=== PATIENT | male | born 1965 | race Two or more races ===

== ENCOUNTER 2024-10-12 10:58 | Emergency (ER) | payer MEDICAID, OTHER ==
[~2024-10-12] VITALS: Ht 170.2 cm; Wt 75.4 kg
--- NOTE | 2024-10-12 11:55 | ED.PDOC ---
HPI Comments 59-year-old male presents with a chief complaint of HTN. Patient states that he was at [facility] for a wrist injury follow up but was referred to the ER due to having HTN. Patients BP in triage was 192/100 and rechecked at 174/98. Denies any radiation or other neuro symptoms. Patient takes 40mg of Lisinopril instead of 20 mg for his HTN. Patient does not check his blood pressure at home typically PMHx: HTN PSHx: Cervical Neck, Left Trigger Thumb SHx: Cigarette Use, Alcohol Use jess: HPI: Poor Historian. Patient was completely asymptomatic. REVIEW OF SYSTEMS: CONSTITUTIONAL: Denies acute: fever, diaphoresis, chills, generalized weakness. HEAD: Denies acute: headache, photophobia Eyes: Denies acute: Double vision, vision loss, eye pain, eye discharge. EARS: Denies acute: tinnitus, hearing loss, ear discharge, ear pain, THROAT: Denies acute: sore throat, swelling, difficulty swallowing , pain with swallowing, change in voice. NECK: Denies acute: neck pain, neck swelling, stiff neck. HEART: Denies acute : chest pain, palpitations, LUNGS: Denies acute: SOB, wheezing, cough, hemoptysis ABDOMEN: Denies acute: abdominal pain, Nausea, Vomiting, diarrhea, melena , hematemesis, hematochezia SKIN: Denies acute: rash, redness, lesions, itchiness. EXTREMITIES: Denies acute: calf pain, numbness, tingling, weakness, denies pain in extremity. Denies acute: Low back pain. Neuro: Denies acute: focal neurological deficit, motor or sensory focal neurological deficit, tremors, seizure like activity, confusion, dizziness, change in mental status, loss of bowel or bladder function, cauda equina like symptoms. : Denies acute: dysuria, hematuria, flank pain, increase in urinary frequency. PSYCH: Denies acute: hallucination, suicidal ideation, homicidal ideation. PHYSICAL EXAM: General: no acute distress, awake and alert. Head: normocephalic, atraumatic. Neck: supple, trachea is midline, no swelling. Throat: Normal phonation. Eyes:, no erythema, no purulent discharge, no proptosis, no icterus. Heart: regular rate, regular rhythm, no significant murmur appreciated. Lungs: no apparent respiratory distress, Able to speak in full sentences. No wheezing, no rhonchi, no crackles. No stridors Clear to auscultation bilaterally. Abdomen: non tender to palpation, non distended, soft, no guarding, no rebound, + bowel sounds. Neuro: Awake, Alert, oriented to name, self, situation, follows commands GCS=15. Speech is normal. Skin: no petechia, no purpura, no cyanosis, non-pale, not jaundice. Lower extremities: --no - Pitting edema no deformity, no focal swelling, no calf TTP. Makes eye contact. moves all four extremities. Face: no apparent facial droop. Ambulating in the ED independently. ED COURSE: Time Seen by MD: 11:21 Reviewed Notes: Nurses Notes, Medications, Allergies Allergies: Coded Allergies: NO KNOWN ALLERGIES (Unverified , 10/12/24) Information Source: Patient Mode of Arrival: Ambulatory Severity: Moderate Timing: Hours Duration: Since onset Prehospital treatment: None Past Medical History PAST MEDICAL HISTORY: HTN Surgical History (Other): Cervical Neck, Left Trigger Thumb Family History Family History: Reviewed,noncontributory to illness Social History Smoker: Non-Smoker Alcohol: Denies ETOH Use Drugs: Denies Drug Use Lives In: Home Was a procedure done? Was a procedure done?: No CP Differential Dx Differential Diagnosis: N/A Differential Diagnosis: Other (DDX include renal disease, thyroid disease, electrolyte abnormality, increased salt intake, medications non-compliance, undiagnosed HTN, Hypertensive crisis, hypertensive urgency., drug toxicity.) X-Ray, Labs, Meds, VS Vital Signs Date Time Temp Pulse Resp B/P (MAP) Pulse Ox O2 Delivery O2 Flow Rate FiO2 10/12/24 14:47 163/110 10/12/24 14:39 98.6 80 16 163/110 (127) 98 98.6 10/12/24 13:23 137/94 10/12/24 12:25 98.7 88 16 155/102 (119) 98 98.7 10/12/24 12:25 88 16 98 Room Air* 0 21 10/12/24 12:23 155/102 10/12/24 11:21 99.2 90 18 192/100 (130) 96 99.2 174/98 (123) 170/100 (123) Lab Test 10/12/24 13:34 10/12/24 12:42 Range/Units Troponin I High Sensitivity 8 9 </=54 ng/L White Blood Count 7.4 4.4-10.8 10^3/uL Red Blood Count 4.38 L 4.5-5.90 10^6/uL Hemoglobin 14.9 13.5-17.5 g/dL Hematocrit 42.5 41.0-53.0 % Mean Corpuscular Volume 97.0 80.0-100.0 fL Mean Corpuscular Hemoglobin 34.0 H 28.0-32.0 pg Mean Corpuscular Hemoglobin Concent 35.0 32.0-36.0 g/dL Red Cell Distribution Width 13.9 11.8-14.3 % Platelet Count 217 140-450 10^3/uL Mean Platelet Volume 8.3 6.9-10.8 fL Neutrophils (%) (Auto) 66.1 37.0-80.0 % Lymphocytes (%) (Auto) 21.3 10.0-50.0 % Monocytes (%) (Auto) 10.1 0.0-12.0 % Eosinophils (%) (Auto) 1.5 0.0-7.0 % Basophils (%) (Auto) 1.0 0.0-2.0 % Neutrophils # (Auto) 4.9 1.6-8.6 10 ^3/uL Lymphocytes # (Auto) 1.6 0.4-5.4 10 ^3/uL Monocytes # (Auto) 0.7 0-1.3 10 ^3/uL Eosinophils # (Auto) 0.1 0-0.8 10 ^3/uL Basophils # (Auto) 0.1 0-0.2 10 ^3/uL Nucleated Red Blood Cells 0.0 % Sodium Level 142 136-145 mmol/L Potassium Level 3.3 L 3.5-5.1 mmol/L Chloride Level 106 98-107 mmol/L Carbon Dioxide Level 28 20-31 mmol/L Anion Gap 8 5-15 Blood Urea Nitrogen 14 9-23 mg/dL Creatinine 1.04 0.700-1.30 mg/dL Glomerular Filtration Rate Calc 83 >90 mL/min BUN/Creatinine Ratio 13.5 10.0-20.0 Serum Glucose 126 H 74-106 mg/dL Lactic Acid Level 1.3 0.4-2.0 mmol/L Calcium Level 9.8 8.7-10.4 mg/dL Total Bilirubin 1.2 H 0.2-1.0 mg/dL Aspartate Amino Transferase (AST) 59 H 13-40 U/L Alanine Aminotransferase (ALT) 65 H 7-40 U/L Alkaline Phosphatase 97 46-116 U/L Total Protein 7.0 5.7-8.2 g/dL Albumin 4.6 3.2-4.8 g/dL Current Medications Medications (Trade) Dose Ordered Sig/Yariel Route Start Time Stop Time Status Last Admin Nitroglycerin (Ntrostat Sublingual) 0.4 mg ONCE ONCE SL 10/12/24 11:45 10/12/24 11:46 DC 10/12/24 12:23 Nitroglycerin (Ntrostat Sublingual) 0.4 mg ONCE ONCE SL 10/12/24 14:45 10/12/24 14:46 DC 10/12/24 14:47 PATIENT: OFELIA SAAVEDRAT: [id number]: [id number] : 1965 LOC: ER ROOM / BED: / AGE / SEX: 59 / M ADM STATUS: REG ER SERVICE 1141 ORDERING PHYSICIAN: GARRETT LUZ DO PROCEDURE(s): CXRP - CHEST PORTABLE REASON: HTN ORDER NUMBER(s): [id number], ACCESSION NUMBER(s): [id number] EXAM: XY CHEST PORTABLE HISTORY: HTN COMPARISON: None TECHNIQUE: Portable AP view of the chest was performed. FINDINGS: No pneumothorax, consolidative infiltrates, or pulmonary edema. The heart is not enlarged. There is moderate to severe thoracic degenerative disc disease. There is slight lower thoracic levoscoliosis. IMPRESSION: No acute intrathoracic process. ATED BY: AMBAR NICE MD DICTATED DATE/TIME: 10/12/241201 SIGNED BY: AMBAR NICE MD SIGNED DATE/TIME: 10/12/24 120 Time of 1ST Reevaluation: 11:51 Reevaluation 1ST: Unchanged Time of 2ND Reevaluation: 22:49 (User: Uzma Duff Rn Date: 10/12/24 14:50 Type: Emergency Department Notes Discharge NoteDischarge instructions discussed with TYLER SAAVEDRA. Verbalizes understanding. ExitCare discharge instructions given. Instructed to follow up with Primary Care Provider. 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 Tried to convince patient to stay in order to reassess nitro effect on blood pressure and patient refused. ) Patient Education/Counseling: Diagnosis, Treatment Family Education/Counseling: No Family Present Comments Patient presented with the above HPI.--hypertension evaluation---workup was initiated. patient was found with the above mentioned diagnosis. the following medications were ordered: please refer to order lists of meds and tests obtained by myself Dr. Luz. Patient ED course and VS have been stabilized. Patient has been reassessed in the ED and remained in a stable condition. Pertinent incidental findings were discussed with the patient and/or family. Patient/family voices understanding and is agreeable with plan. Escalation of care considered: Consideration of escalation to observation or admission Patient is completely asymptomatic. I ordered sublingual nitroglycerin for patient's hypertension. Later I discovered that the patient left and did not want to stay for further treatment to stabilize his blood pressure. Please see the nurse's notes All the reports of any imaging studies that were ordered by myself were reviewed by myself. Departure 1 Departure Time of Disposition: 14:27 Impression: Primary Impression: Hypertensive urgency Disposition: LEFT AGAINST MEDICAL ADVICE Condition: Stable Additional Instructions: Additional discharge instructions: You MUST follow-up with your primary care/family doctor in 1 to 2 days. If you are unable to see your primary care/family doctor, please return to our emergency room for re-assessment and re-evaluation in 1 to 2 days. Return to the emergency room here in our facility or to the nearest ER [facility] if your symptoms change or worsen. CONSULTATIONS: you MUST Follow-up for consultation as soon as possible with: -cardiology in 1-2 days. Please call for appointment. You MUST call the consultants office yourself to make an appointment. You may need to arrange that through your insurance and/or your primary/family doctor. If you are unable to see the loss control consultant in 1 to 2 days, you must return to our emergency room (or any other ER of your choice) for re-assessment and re- evaluation. Adequate fluid hydration. Monitoring blood pressure at home at least 3 times a day. Discharged With: Self Critical Care Note Critical Care Time?: No Heart Score Heart Score: Heart Score Response (Comments) Value History Slightly Suspicious 0 EKG Normal 0 Age 45-64 1 Risk Factors 1 or 2 risk factors 1 Troponin Normal limit 0 Total 2 I personally scribed for GARRETT LUZ DO ([email or web address]) on 10/12/24 at 11:55. Electronically submitted by Nathaniel Snowden ([email or web address]). I personally scribed for GARRETT LUZ DO ([email or web address]) on 10/12/24 at 12:49. Electronically submitted by Nathaniel Snowden ([email or web address]). I personally scribed for GARRETT LUZ DO ([email or web address]) on 10/12/24 at 12:52. Electronically submitted by Nathaniel Snowden ([email or web address]). GARRETT LUZ DO Oct 12, 2024 11:55
--- NOTE | 2024-10-12 12:04 | DVH ---
EXAM: XY CHEST PORTABLE HISTORY: HTN COMPARISON: None TECHNIQUE: Portable AP view of the chest was performed. FINDINGS: No pneumothorax, consolidative infiltrates, or pulmonary edema. The heart is not enlarged. There is moderate to severe thoracic degenerative disc disease. There is slight lower thoracic levosc oliosis. IMPRESSION: No acute intrathoracic process.
[2024-10-12] MEDS: NITROGLYCERIN 0.4 MG SL TAB SL ONE ×2 (12:23→14:47)
[2024-10-12 12:25] VITALS: PULSE 88; RESP 16; O2SAT 98
[2024-10-12 13:06] LABS: Basophils # (auto) 0.1 10 ^3/uL (0-0.2); Eosinophils # (auto) 0.1 10 ^3/uL (0-0.8); Eosinophils % (auto) 1.5 % (0.0-7.0); Hematocrit 42.5 % (41.0-53.0); Hemoglobin 14.9 g/dL (13.5-17.5); Lymphocytes # (auto) 1.6 10 ^3/uL (0.4-5.4); Lymphocytes % (auto) 21.3 % (10.0-50.0); Monocytes # (auto) 0.7 10 ^3/uL (0-1.3); Monocytes % (auto) 10.1 % (0.0-12.0); Neutrophils # (auto) 4.9 10 ^3/uL (1.6-8.6); Neutrophils % (auto) 66.1 % (37.0-80.0); Platelet Count (auto) 217 10^3/uL (140-450); Red Blood Cells 4.38 10^6/uL (4.5-5.90); Red Cell Distribution Width 13.9 % (11.8-14.3); White Blood Cell 7.4 10^3/uL (4.4-10.8)
[2024-10-12 13:19] LABS: Alkaline Phosphatase 97 U/L (46-116); Anion Gap 8 (5-15); BUN/Creatinine Ratio 13.5 (10.0-20.0); Blood Urea Nitrogen 14 mg/dL (9-23); Calcium 9.8 mg/dL (8.7-10.4); Carbon Dioxide 28 mmol/L (20-31); Chloride 106 mmol/L (98-107); Sodium 142 mmol/L (136-145)
[2024-10-12 13:20] LABS: Albumin 4.6 g/dL (3.2-4.8)
[2024-10-12 13:21] LABS: Alanine Aminotransferase 65 U/L (7-40); Aspartate Aminotransferase 59 U/L (13-40); Bilirubin, Total 1.2 mg/dL (0.2-1.0); Glucose 126 mg/dL (74-106); Potassium 3.3 mmol/L (3.5-5.1)
[2024-10-12 14:39] VITALS: BP 163/110; PULSE 80; RESP 16; TEMP 98.6; O2SAT 98
== END 2024-10-12 14:50 | disposition home or self-care (01) ==
LOC: ER 11:06
DX: I16.0 Hypertensive urgency (principal); I10 Essential (primary) hypertension; F17.210 Nicotine dependence, cigarettes, uncomplicated
CPT/HCPCS: 36415; 71045; 80053; 83605; 84484; 85025

== ENCOUNTER 2024-10-14 07:27 | Emergency (ER) | payer MEDICAID ==
[~2024-10-14] VITALS: Ht 170.2 cm; Wt 76.4 kg
[2024-10-14 07:36] VITALS: PULSE 82; RESP 20; O2SAT 97
[2024-10-14] MEDS: cloNIDine HCL 0.1 MG TAB PO ONE (07:49)
--- NOTE | 2024-10-14 08:21 | ED.PDOC ---
History of Present Illness HPI Comments 59 year old male presents to the ED with chief complaint of hypertension. Patient reports that he has been dealing with HTN for the past few months. Patient relays that he takes his Lisinopril 20mg as prescribed, however, he has no PCP at this time. Patient states he was evaluated by his worker's comp doctor and was told he had high BP at 186/102. Patient denies any dizziness, headache, chest pain, SOB, blurred vision, or N/V. Chief Complaint: High Blood Pressure Time Seen by MD: 07:57 Primary Care Provider: NONE Allergies: Coded Allergies: NO KNOWN ALLERGIES (Unverified , 10/12/24) Home Meds Active Scripts Clonidine Hydrochloride (Clonidine Hcl) 0.1 Mg Tab, 0.1 MG PO DAILY for 10 Days, #10 MG Prov:JOHN LUGO MD 10/14/24 Mode of Arrival: Ambulatory Severity: Mild Timing: Months Duration: Since onset Prehospital treatment: None Medication Refill: For: Hypertension Past Medical History PAST MEDICAL HISTORY: HTN Surgical History: Denies all surgeries Family History Family History: Reviewed,noncontributory to illness Social History Smoker: Non-Smoker Alcohol: Denies ETOH Use Drugs: Denies Drug Use Lives In: Home Constitutional: denies: chills, diaphoresis, fatigue, fever, malaise, sweats, weakness, others EENTM: denies: blurred vision, double vision, ear bleeding, ear discharge, ear drainage, ear pain, ear ringing, eye pain, eye redness, hearing loss, mouth pain, mouth swelling, nasal discharge, nose bleeding, nose congestion, nose pain, photophobia, tearing, throat pain, throat swelling, voice changes, others Respiratory: denies: cough, hemoptysis, orthopnea, SOB at rest, shortness of breath, SOB with excertion, stridor, wheezing, others Cardiovascular: denies: chest pain, dizzy spells, diaphoresis, Dyspnea on exertion, edema, irregular heart beat, left arm pain, lightheadedness, palpitations, PND, syncope, others Gastrointestinal: denies: abdomen distended, abdominal pain, blood streaked bowels, constipated, diarrhea, dysphagia, difficulty swallowing, hematemesis, melena, nausea, poor appetite, poor fluid intake, rectal bleeding, rectal pain, vomiting, others Genitourinary: denies: burning, dysuria, flank pain, frequency, hematuria, incontinence, penile discharge, penile sore, pain, testicle pain, testicle swelling, urgency, others Neurological: denies: dizziness, fainting, headache, left sided numbness, left sided weakness, numbness, paresthesia, pre-existing deficit, right sided numbness, right sided weakness, seizure, speech problems, tingling, tremors, weakness, others Musculoskeletal: denies: back pain, gout, joint pain, joint swelling, muscle pain, muscle stiffness, neck pain, others Integumetry: denies: bruises, change in color, change in hair/nails, dryness, laceration, lesions, lumps, rash, wounds, others Allergic/Immunocompromised: denies: Difficulty Healing, Frequent Infections, Hi ves, Itching, others Hematologic/Lymphatic: denies: anemia, blood clots, easy bleeding, easy bruising, swollen glands, others Endocrine: denies: excessive hunger, excessive sweating, excessive thirst, excessive urination, flushing, intolerance to cold, intolerance to heat, unexplained weight gain, unexplained weight loss, others Psychiatric: denies: anxiety, bipolar disorder, depression, hopeless, panic disorder, schizophrenia, sleepless, suicidal, others All Other Systems: Reviewed and Negative Physical Exam General Appearance: Moderate Distress, Normal HEENT: Normal ENT Inspection, PERRL/EOMI Neck: Full Range of Motion, Non-Tender, Normal, Normal Inspection Respiratory: Chest Non-Tender, Lungs Clear, No Accessory Muscle Use, No Respiratory Distress, Normal Breath Sounds Cardiovascular: No Edema, No JVD, No Murmur, No Gallop, Normal Peripheral Pulses, Regular Rate/Rhythm Breast Exam: Deferred Gastrointestinal: No Organomegaly, Non Tender, No Pulsatile Mass, Normal Bowel Sounds, Soft Genitalia: Deferred Pelvic: Deferred Rectal: Deferred Extremities: No calf tenderness, Normal capillary refill, Normal inspection, Normal range of motion, Non-tender, No pedal edema Musculoskeletal : Apperance: Normal Neurologic: Alert, public affairs officer II-XII nml as Tested, No Motor Deficits, Normal Affect, Normal Mood, No Sensory Deficits Cerebellar Function: Normal Reflexes: Normal Skin: Dry, Normal Color, Warm Peripheral Pulses: 3+ Radial (R), 3+ Radial (L) Lymphatic: No Adenopathy Was a procedure done? Was a procedure done?: No Differential Dx Considerations may include: Hypertension X-Ray, Labs, Meds, VS Vital Signs Date Time Temp Pulse Resp B/P (MAP) Pulse Ox O2 Delivery O2 Flow Rate FiO2 10/14/24 09:38 97.6 63 20 146/96 (113) 96 97.6 10/14/24 09:12 146/102 10/14/24 07:50 76 10/14/24 07:49 183/106 10/14/24 07:36 82 20 97 Room Air* 0 21 10/14/24 07:36 97.7 82 20 143/103 (116) 97 97.7 10/14/24 07:36 97.7 82 20 143/103 (116) 97 97.7 178/102 (127) Lab Test 10/14/24 08:38 Range/Units Troponin I High Sensitivity 9 </=54 ng/L Current Medications Medications (Trade) Dose Ordered Sig/Yariel Route Start Time Stop Time Status Last Admin Clonidine HCl (Catapres Tablet) 0.2 mg ONCE ONCE PO 10/14/24 07:45 10/14/24 07:46 DC 10/14/24 07:49 Lorazepam (Ativan Tablet) 1 mg ONCE ONCE PO 10/14/24 08:30 10/14/24 08:31 DC 10/14/24 09:04 Patient alert. Blood pressure elevated. Was given clonidine. Saturation pristine on room air. No sign of distress. Ambulating without difficulty. Has been taking his blood pressure medication. Denies any symptoms. No leg swelling. Denies chest pain. Denies shortness a breath. Explained to the patient. Was told to follow up with his primary care physician. Was told to come back if there is any problem. Time of 1ST Reevaluation: 08:57 Reevaluation 1ST: Improved Patient Education/Counseling: Diagnosis, Treatment Family Education/Counseling: No Family Present Additional Information Previous visit documents reviewed: 10/12/24 for HTN urgency The following tests were ordered, and results were reviewed by me: Additional Information was gathered from interviewing the following independent historians: I reviewed and agreed with the following test results read by other providers: I discussed treatment and results with medical personnel and: Patient Comprehensive systems review obtained and negative except for what is stated in the HPI. Departure 1 Departure Time of Disposition: 08:31 Impression: Primary Impression: Hypertensive urgency Disposition: HOME / SELF CARE / HOMELESS Condition: Good e-Prescriptions Clonidine Hydrochloride (Clonidine Hcl) 0.2 Mg Tab 1 TAB PO QPM for 10 Days, #10 TAB 1 Refill Prov: JOHN LUGO MD 10/14/24 Discharged With: Self Critical Care Note Critical Care Time?: No Stability Stability form required: No Heart Score Heart Score: Heart Score Response (Comments) Value History N/A 0 EKG N/A 0 Age N/A 0 Risk Factors N/A 0 Troponin N/A 0 Total 0 I personally scribed for JOHN LUGO MD ([email or web address]) on 10/14/24 at 08:21. Electronically submitted by Sabas Reed ([email or web address]). JOHN LUGO MD Oct 14, 2024 08:21
[2024-10-14] MEDS: LORazepam 0.5 MG TAB PO ONE (09:04)
[2024-10-14 09:38] VITALS: BP 146/96; PULSE 63; RESP 20; TEMP 97.6; O2SAT 96
[2024-10-14] MEDS ORDERED: CLON0.1T PO (09:55)
[2024-10-14] MEDS ORDERED: CLON0.2T PO (10:02)
--- NOTE | 2024-10-15 11:11 | ECG ---
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
--- NOTE | 2024-10-16 07:09 | ECG ---
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
== END 2024-10-14 10:07 | disposition home or self-care (01) ==
LOC: ER 07:27
DX: I16.0 Hypertensive urgency (principal)
CPT/HCPCS: 36415; 84484; 93005

== ENCOUNTER 2025-06-28 10:37 | Inpatient (IN) | payer OTHER ==
[~2025-06-28] VITALS: Ht 167.6 cm; Wt 76.5 kg
[~2025-06-28 10:37] MED LIST: CLON0.2T PO
--- NOTE | 2025-06-28 11:39 | ED.PDOC ---
Musculoskeletal HPI Comments HPI: 59 year-old male presents to the ED with a chief complaint of L lower extremity pain for X3 weeks. Patient reports pain from the L posterior thigh radiating to the L calf. Patient additionally reports symptoms of SOB for the past X2 weeks and loss of appetite over the past couple of days. Patient has no further complaints or modifying factors at this time. Patient denies any trauma to the L leg, or symptoms of weakness, palpitations, chest pain, cough, or N/V/D. Initial Vitals BP: 100/59 HR: 138 RR: 20 O2: 96 Temp: 97.7 Past Medical History: HTN Past Surgical History: Cervical Spine Fusion Social History: Unknown Medications: Unknown Allergies: nka KERI: Left leg pain, tachycardic, hypotension, HPI: Poor Historian. REVIEW OF SYSTEMS: CONSTITUTIONAL: Denies acute: fever, diaphoresis, chills, HEAD: Denies acute: headache, photophobia Eyes: Denies acute: Double vision, vision loss, eye pain, eye discharge. EARS: Denies acute: tinnitus, hearing loss, ear discharge, ear pain, THROAT: Denies acute: sore throat, swelling, difficulty swallowing , pain with swallowing, change in voice. NECK: Denies acute: neck pain, neck swelling, stiff neck. HEART: Denies acute : chest pain, palpitations, LUNGS: Denies acute: SOB, wheezing, cough, hemoptysis ABDOMEN: Denies acute: abdominal pain, Nausea, Vomiting, diarrhea, melena , hematemesis, hematochezia SKIN: Denies acute: rash, redness, lesions, itchiness. EXTREMITIES: Denies acute: calf pain, numbness, tingling, weakness, Denies acute: Low back pain. Neuro: Denies acute: focal neurological deficit, motor or sensory focal neurological deficit, tremors, seizure like activity, confusion, dizziness, change in mental status, loss of bowel or bladder function, cauda equina like symptoms. : Denies acute: dysuria, hematuria, flank pain, increase in urinary frequency. PSYCH: Denies acute: hallucination, suicidal ideation, homicidal ideation. PHYSICAL EXAM: General: ----moderate----acute distress, awake and alert. Head: normocephalic, atraumatic. No raccoon's eyes, no green sign. Neck: supple, trachea is midline, no swelling. Throat: Normal phonation. Eyes:, no erythema, no purulent discharge, no proptosis, no icterus. Heart: regular tachycardia, no significant murmur appreciated. Lungs: no apparent respiratory distress, Able to speak in full sentences. No wheezing, no rhonchi, no crackles. No stridors Clear to auscultation bilaterally. Abdomen: non tender to palpation, non distended, soft, no guarding, no rebound, + bowel sounds. Neuro: Awake, Alert, oriented to name, self, situation, follows commands GCS=15. Speech is normal. Skin: no petechia, no purpura, no cyanosis, non-pale, not jaundice. Lower extremities: --no - Pitting edema no deformity, no focal swelling, Patient has left posterior thigh pain extending to his left calf. Denies any fall or trauma. Makes eye contact. moves all four extremities. Face: no apparent facial droop. Ambulating in the ED independently. ED COURSE: DISCLAIMER: This medical document was created using an electronic medical record system with voice recognition software and computerized dictation system. Although this document has been carefully reviewed, there might still be some phonetic and typographical errors. Occasional wrong-word or "sound-alike" substitutions may have occurred due to the inherent limitations of voice recognition software. These areas are purely typographical due to imperfections of the software programs and do not reflect any compromise in the patient's medical care. Please read the chart carefully and recognize, using context, where these substitutions have occurred. Chief Complaint: Shortness of Breath Time Seen by MD: 11:30 Primary Care Provider: NONE Reviewed Notes: Medications, Allergies Allergies: Coded Allergies: NO KNOWN ALLERGIES (Unverified , 10/12/24) Home Meds Active Scripts Apixaban Base (Eliquis Starter Pack) 5 Mg Tab, 5 MG PO BID, #88 TAB take 2 tablets twice per day for 7 days then 1 tab twice per day until finish. Prov:LAYLA NEAL MD 07/03/25 Hydrocodone-Acetaminophen (Hydrocodone Bitartrate/AC 10-325 mg) 1 Tab Tab, 1 TAB PO Q6HP PRN, #20 TAB Prov:LAYLA NEAL MD 07/03/25 Reported Medications Lisinopril (Lisinopril) 20 Mg Tab, 20 MG PO DAILY for 30 Days, MG 06/29/25 Hydrochlorothiazide (Hydrochlorothiazide) 12.5 Mg Cap, 12.5 MG PO DAILY for 30 Days, MG 06/29/25 Information Source: Patient Mode of Arrival: Ambulatory Location: Left Extremity Location: Calf, Leg, Thigh Timing: Weeks Severity: Moderate Onset of Symptoms: Spontaneous Symptoms: Pain Associated signs and symptoms: Other (L calf pain ) Past Medical History PAST MEDICAL HISTORY: HTN Surgical History: Denies all surgeries Family History Family History: Reviewed,noncontributory to illness Social History Smoker: Non-Smoker Alcohol: Denies ETOH Use Drugs: Denies Drug Use Lives In: Home Was a procedure done? Was a procedure done?: No Differential Diagnosis EXT Differential Diagnosis: Cellulitis, CHF, Deep Vein Thrombosis, Compartment Syndrome, Fracture, Sprain, Dislocation, Contusion, Strain, Septic, Neurovascular injury, Arthritis, Other (Leg swellingDdx include but not limited to DVT, ischemic limb, pitting edema, volume overload, CHF, cellulitis, hematoma, compartment syndrome, dependent edema, venous stasis. Necrotizing fasciitis, abscess, infestation.) X-Ray, Labs, Meds, VS Vital Signs Date Time Temp Pulse Resp B/P (MAP) Pulse Ox O2 Delivery O2 Flow Rate FiO2 06/28/25 14:20 90/60 06/28/25 14:00 101 15 95 Room Air* 0 21 06/28/25 14:00 101 17 95 Room Air 0 06/28/25 14:00 98.5 101 17 90/56 (67) 95 98.5 06/28/25 10:38 97.7 119 20 100/59 96 97.7 Lab Test 06/28/25 13:39 06/28/25 13:38 06/28/25 11:57 06/28/25 11:30 Range/Units POC Glucose 118 H 70-106 mg/dl Troponin I High Sensitivity 28 22 </=54 ng/L White Blood Count 12.8 H 4.4-10.8 10^3/uL Red Blood Count 4.43 L 4.5-5.90 10^6/uL Hemoglobin 15.1 13.5-17.5 g/dL Hematocrit 45.9 41.0-53.0 % Mean Corpuscular Volume 103.5 H 80.0-100.0 fL Mean Corpuscular Hemoglobin 33.9 H 28.0-32.0 pg Mean Corpuscular Hemoglobin Concent 32.8 32.0-36.0 g/dL Red Cell Distribution Width 13.7 11.8-14.3 % Platelet Count 371 140-450 10^3/uL Mean Platelet Volume 8.4 6.9-10.8 fL Neutrophils (%) (Auto) 79.4 37.0-80.0 % Lymphocytes (%) (Auto) 9.4 L 10.0-50.0 % Monocytes (%) (Auto) 10.3 0.0-12.0 % Eosinophils (%) (Auto) 0.6 0.0-7.0 % Basophils (%) (Auto) 0.3 0.0-2.0 % Neutrophils # (Auto) 10.2 H 1.6-8.6 10 ^3/uL Lymphocytes # (Auto) 1.2 0.4-5.4 10 ^3/uL Monocytes # (Auto) 1.3 0-1.3 10 ^3/uL Eosinophils # (Auto) 0.1 0-0.8 10 ^3/uL Basophils # (Auto) 0 0-0.2 10 ^3/uL Nucleated Red Blood Cells 0.1 % Prothrombin Time 10.5 9.3-11.8 sec Prothrombin Time INR 0.99 0.9-1.15 Activated Partial Thromboplast Time 25.6 24.5-34.5 SEC D-Dimer, Quantitative 10.14 H 0.0-0.49 mg/L FEU Sodium Level 138 136-145 mmol/L Potassium Level 5.6 *H 3.5-5.1 mmol/L Chloride Level 108 H 98-107 mmol/L Carbon Dioxide Level 17 L 20-31 mmol/L Anion Gap 13 5-15 Blood Urea Nitrogen 74 H 9-23 mg/dL Creatinine 7.30 H 0.700-1.30 mg/dL Glomerular Filtration Rate Calc 8 >90 mL/min BUN/Creatinine Ratio 10.1 10.0-20.0 Serum Glucose 125 H 74-106 mg/dL Lactic Acid Level 2.6 *H 0.4-2.0 mmol/L Calcium Level 9.9 8.7-10.4 mg/dL Magnesium Level 1.9 1.6-2.6 mg/dL Total Bilirubin 1.0 0.2-1.0 mg/dL Aspartate Amino Transferase (AST) 51 H 13-40 U/L Alanine Aminotransferase (ALT) 51 H 7-40 U/L Alkaline Phosphatase 122 H 46-116 U/L Total Protein 8.0 5.7-8.2 g/dL Albumin 4.5 3.2-4.8 g/dL Urine Color Yellow Yellow Urine Clarity Turbid H Clear Urine pH 5.0 5.0-9.0 Urine Specific [place] 1.011 1.001-1.035 Urine Protein Trace H Negative Urine Ketones Negative Negative Urine Blood Negative Negative /uL Urine Nitrite Negative Negative Urine Bilirubin Negative Negative Urine Urobilinogen Normal Negative mg/dL Urine Leukocyte Esterase Negative Negative /uL Urine RBC None seen 0 - 3 /hpf Urine Microscopic WBC 3 0-3 /HPF Urine Squamous Epithelial Cells Few <5 /hpf Urine Bacteria Few H None Seen /hpf Urine Glucose Normal Normal mg/dL Microbiology Date/Time Source Procedure Growth Status 06/28/25 12:00 Blood Blood Culture - Final NO GROWTH AFTER 5 DAYS OF INCUBATION. [facility] 06/28/25 11:57 Blood Blood Culture - Final NO GROWTH AFTER 5 DAYS OF INCUBATION. [place] [id number] Ph: [phone] DIAGNOSTIC IMAGING Diagnostic Imaging Report : [id number] Signed PATIENT: TYLER SAAVEDRA ACCT: [id number] UNIT: [id number] : 1965 LOC: ER ROOM / BED: / AGE / SEX: 59 / M ADM STATUS: REG ER SERVICE 1129 ORDERING PHYSICIAN: GARRETT LUZ DO PROCEDURE(s): CXRP - CHEST PORTABLE REASON: tachy ORDER NUMBER(s): [id number], ACCESSION NUMBER(s): [id number] INDICATION: tachy TECHNIQUE: Frontal view of the chest. COMPARISON: XY CHEST PORTABLE on DOS: 10/12/24 FINDINGS: . The heart and mediastinal contours are grossly unremarkable. There is no evidence of pleural disease. The lungs are clear. The bony structures of the chest are intact without fracture. IMPRESSION: 1. No evidence of acute disease. ATED BY: DARIO WEEMS MD DICTATED DATE/TIME: 06/28/251201 SIGNED BY: DARIO WEEMS MD SIGNED DATE/TIME: 06/28/251201 CC: [place] [id number] Ph: [phone] DIAGNOSTIC IMAGING Diagnostic Imaging Report : [id number] Signed PATIENT: TYLER SAAVEDRA ACCT: [id number] UNIT: [id number] : 1965 LOC: ER ROOM / BED: / AGE / SEX: 59 / M ADM STATUS: REG ER SERVICE 28 ORDERING PHYSICIAN: GARRETT LUZ DO PROCEDURE(s): LLDVT - LT Lower DVT REASON: pain ORDER NUMBER(s): [id number], ACCESSION NUMBER(s): [id number] Left lower extremity venous duplex CLINICAL HISTORY: pain COMPARISON: None TECHNIQUE: Duplex Doppler evaluation of the deep venous system of the left lower extremity from the common femoral vein to the popliteal vein including color Doppler and spectral/pulsed waveform analysis was performed. FINDINGS: The common femoral vein demonstrates appropriate compressibility and waveform variability. There is compressibility/patency of the great saphenous vein at the proximal t high. The femoral vein demonstrates intraluminal thrombus and noncompressibility mid and distal. The deep femoral vein demonstrates appropriate compressibility and waveform variability. The popliteal vein demonstrates intraluminal thrombus and noncompressibility. Intraluminal thrombus and noncompressibility in the left posterior tibial vein and peroneal vein. IMPRESSION: Acute appearing deep venous thrombosis in the left femoral vein, popliteal vein, posterior tibial vein and peroneal vein. Critical Result: DVT Findings discussed with Dr. Luz by feather mixer , at 06/28/2025 01:07 PM, and acknowledged receipt and understanding of the findings. ATED BY: CHAPO SAMPSON MD DICTATED DATE/TIME: 06/28/257 SIGNED BY: CHAPO SAMPSON MD SIGNED DATE/TIME: 06/28/251306 CC: [place] [id number] Ph: [phone] DIAGNOSTIC IMAGING Diagnostic Imaging Report : [id number] Signed PATIENT: TYLER SAAVEDRA ACCT: [id number] UNIT: [id number] : 1965 LOC: ER ROOM / BED: / AGE / SEX: 59 / M ADM STATUS: REG ER SERVICE 1408 ORDERING PHYSICIAN: GARRETT LUZ DO PROCEDURE(s): VQ - NM VQ SCAN REASON: DVT; TACHYCARDIA ?PE ORDER NUMBER(s): [id number], ACCESSION NUMBER(s): [id number] CLINICAL INFORMATION: DVT. Tachycardia. Possible PE. TECHNIQUE: 6.5 mCi of Xenon-133 gas was used for the ventilation portion of the exam. Posterior ventilation imaging was obtained. 4.5 mCi of technetium 99m MAA was used for the perfusion portion of the exam. Imaging was obtained in multiple planes of projection. COMPARISON: Chest radiograph performed the same day. FINDINGS: Perfusion imaging shows no mismatched segmental or subsegmental segmental defects. Ventilation imaging shows no defects. There is normal washout. IMPRESSION: Normal exam. No evidence of pulmonary embolism. ATED BY: CHRIS BARNES DO DICTATED DATE/TIME: 06/28/25 1508 SIGNED BY: CHRIS BARNES DO SIGNED DATE/TIME: 06/28/25 1508 CC: Time of 1ST Reevaluation: 12:14 Reevaluation 1ST: Unchanged Patient Education/Counseling: Diagnosis, Treatment Family Education/Counseling: No Family Present Comments Sepsis and hyperkalemia protocol was initiated. Anticoagulation was initiated. Unable to obtain a CTA angiogram of the chest due to patient's elevated creatinine. V/Q scan was obtained instead. MDM: patient presented with the above HPI.--extremity pain----workup was initiated. patient was found with the above mentioned diagnosis. the following medications were ordered: please refer to order lists of meds and tests obtained by myself Dr. Luz. Patient ED course and VS have been stabilized. Patient has been reassessed in the ED and remained in a stable condition. Pertinent incidental findings were discussed with the patient and/or family. Patient/family voices understanding and is agreeable with plan. Patient has been observed in the ED adequate length of time to insure improvement/stability. Escalation of care considered: Consideration of escalation to observation or admission Patient was ADMITTED to the medicine team for further evaluation and treatment of their presentation. All the reports of any imaging studies that were ordered by myself were reviewed by myself. Departure 1 Departure Time of Disposition: 13:05 Impression: Primary Impression: Deep vein thrombosis (DVT) of left lower extremity Additional Impressions: Hyperkalemia Acute renal failure Sepsis Disposition: ADMITTED INPATIENT Admit to: Tele Condition: Guarded e-Prescriptions Apixaban Base (Eliquis Starter Pack) 5 Mg Tab 5 MG PO BID, #88 TAB take 2 tablets twice per day for 7 days then 1 tab twice per day until finish. Prov: LAYLA NEAL MD 07/03/25 Hydrocodone-Acetaminophen (Hydrocodone Bitartrate/AC 10-325 mg) 1 Tab Tab 1 TAB PO Q6HP PRN, #20 TAB Prov: LAYLA NEAL MD 07/03/25 Discharged With: Self Critical Care Note Critical Care Time?: Yes (1 hr-critical care time only) Critical care comment: Due to a high probability of clinically significant, life threatening deterioration, the patient required my highest level of preparedness to intervene emergently and I personally spent this critical care time directly and personally managing the patient. This critical care time included obtaining a history; examining the patient; pulse oximetry; ordering and review of studies; arranging urgent treatment with development of a management plan; evaluation of patient's response to treatment; frequent reassessment; and, discussions with other providers. This critical care time was performed to assess and manage the high probability of imminent, life-threatening deterioration that could result in multi-organ failure. It was exclusive of separately billable procedures and treating other patients and teaching time. Please see my other sections and the rest of the note for further information on patient assessment and treatment. I personally scribed for GARRETT LUZ DO ([email or web address]) on 06/28/25 at 11:39. Electronically submitted by [place] ([employer]). I personally scribed for GARRETT LUZ DO ([email or web address]) on 06/28/25 at 11:41. Electronically submitted by [place] ([employer]). I personally scribed for GARRETT LUZ DO ([email or web address]) on 06/28/25 at 19:49. Electronically submitted by Ivet Ghosh ([facility]). GARRETT LUZ DO Jun 28, 2025 11:39
--- NOTE | 2025-06-28 12:05 | DVH ---
INDICATION: tachy TECHNIQUE: Frontal view of the chest. COMPARISON: XY CHEST PORTABLE on DOS: 10/12/24 FINDINGS: . The heart and mediastinal contours are grossly unremarkable. There is no evidence of pleural disease. The lungs are clear. The bony structures of the chest are intact without fracture. IMPRESSION: 1. No evidence of acute disease.
[2025-06-28 12:47] LABS: Hematocrit 45.9 % (41.0-53.0); Hemoglobin 15.1 g/dL (13.5-17.5); Mean Corpuscular Hemoglobin 33.9 pg (28.0-32.0); Mean Corpuscular Volume 103.5 fL (80.0-100.0); Nucleated Red Blood Cells % 0.1 %
[2025-06-28 12:56] LABS: Alanine Aminotransferase 51 U/L (7-40); Albumin 4.5 g/dL (3.2-4.8); Alkaline Phosphatase 122 U/L (46-116); Anion Gap 13 (5-15); BUN/Creatinine Ratio 10.1 (10.0-20.0); Bilirubin, Total 1.0 mg/dL (0.2-1.0); Blood Urea Nitrogen 74 mg/dL (9-23); Calcium 9.9 mg/dL (8.7-10.4); Carbon Dioxide 17 mmol/L (20-31); Chloride 108 mmol/L (98-107); Glucose 125 mg/dL (74-106); Magnesium 1.9 mg/dL (1.6-2.6); Sodium 138 mmol/L (136-145); Total Protein 8.0 g/dL (5.7-8.2)
[2025-06-28 12:58] LABS: Potassium 5.6 mmol/L (3.5-5.1)
[2025-06-28 12:59] LABS: Lactic Acid w/Reflex 2.6 mmol/L (0.4-2.0)
[2025-06-28 13:09] LABS: INR 0.99 (0.9-1.15); Partial Thromboplastin Time 25.6 SEC (24.5-34.5); Prothrombin Time 10.5 sec (9.3-11.8)
--- NOTE | 2025-06-28 13:10 | DVH ---
Left lower extremity venous duplex CLINICAL HISTORY: pain COMPARISON: None TECHNIQUE: Duplex Doppler evaluation of the deep venous system of the left lower extremity from the common femoral vein to the popliteal vein including color Doppler and spectral/pulsed waveform analysis was performed. FINDINGS: The common femoral vein demonstrates appropriate compressibility and waveform variability. There is compressibility/patency of the great saphenous vein at the proximal thigh. The femoral vein demonstrates intraluminal thrombus and noncompressibility mid and distal. The deep femoral vein demonstrates appropriate compressibility and waveform variability. The popliteal vein demonstrates intraluminal thrombus and noncompressibility. Intraluminal thrombus and noncompressibility in the left posterior tibial vein and peroneal vein. IMPRESSION: Acute appearing deep venous thrombosis in the left femoral vein, popliteal vein, posterior tibial vein and peroneal vein. Critical Result: DVT Findings discussed with Dr. Champagne by field pipe lines supervisor , at 06/28/2025 01:07 PM, and acknowledged receipt and understanding of the findings.
[2025-06-28] MEDS: CALCIUM GLUC 1,000mg/50ml-NS 50 ML IV ONE (13:30)
[2025-06-28] MEDS: SODIUM ZIRCONIUM CYCL 10 GM PAK PO ONE (13:30)
[2025-06-28] MEDS: VANCOMYCIN 1GM/250ML KIT 250 ML IV ONE (13:30)
[2025-06-28 13:31] LABS: Urine Protein, UAD TRACE (Negative)
[2025-06-28] MEDS: CEFEPIME 1GM/50ML 50 ML IV ONE (13:31)
[2025-06-28] MEDS: ENOXAPARIN SOD 80 MG/0.8ML SYRINGE SC STA (13:32)
[2025-06-28] MEDS: ALBUTEROL SULF 2.5 MG/0.5ML(0.5%) NEB SOLN NEB ONE (13:35)
[2025-06-28 14:00] VITALS: PULSE 101; RESP 15; O2SAT 95
[2025-06-28] MEDS: SODIUM BICARB 8.4% 50Meq/50ml SYR INJ IV ONE (14:02)
[2025-06-28] MEDS ORDERED: VANCOMYCIN PER PHARMACY 0 MG IV SCH (14:15)
[2025-06-28] MEDS: SODIUM CHLORIDE 0.9% 1,000 ML IV SCH (14:15)
[2025-06-28] MEDS ORDERED: NITROGLYCERIN 0.4 MG SL TAB SL PRN (14:15)
[2025-06-28] MEDS ORDERED: ONDANSETRON HCL 4 MG/2 ML VIAL IV PRN (14:15)
[2025-06-28] MEDS ORDERED: HEPARIN SODIUM (PORCINE) 5000 UNITS/ML 1ML VIAL IV ONE (14:15)
[2025-06-28] MEDS ORDERED: DOCUSATE SOD 100 MG CAP PO PRN (14:15)
[2025-06-28] MEDS ORDERED: MORPHINE SULFATE INJ 2 MG/ml SYRG IV PRN (14:15)
[2025-06-28] MEDS: FUROSEMIDE 20 MG/2 ML VIAL IV ONE (14:20)
--- NOTE | 2025-06-28 14:20 | DVHHP2 ---
History of Present Illness Reason for Visit: sob and left leg pain History of Present Illness 59-year-old male with past medical history of hypertension and surgical history significant for cervical spine fusion in 1995 presents with left leg pain and swelling for three weeks and progressive shortness of breath. Patient reports that approximately three weeks ago he developed left leg pain followed by significant swelling. About 1.5 weeks later, he began experiencing shortness of breath. He was evaluated at an outside clinic for a physical exam and was advised to come to the ED about one week ago but did not present until today due to worsening symptoms. He reports worsening dyspnea but denies chest pain. He states he has been taking hydrochlorothiazide and lisinopril for the past four months, with hydrochlorothiazide recently added due to persistently elevated blood pressures in the [id number] systolic range. He denies any prior history of kidney disease and states he has been taking his medications as prescribed. He notes decreased oral intake since Tuesday. Social history is significant for daily alcohol use for the past two months, approximately 56 shots daily, with last drink on Tuesday. He denies history of withdrawal seizures but reports mild tremors since stopping alcohol. In the ED, patient was found to have an extensive left lower extremity DVT extending from the femoral vein to the tibial veins. Due to elevated creatinine (7.30) and hyperkalemia (K 5.8), CT angiography was deferred, and a V/Q scan was ordered to evaluate for pulmonary embolism. Chest X-ray was unremarkable. D-dimer elevated at 10.14. Troponin was negative. Lactate 2.6. AST 51, ALT 51, alkaline phosphatase 122. Last known creatinine was 1.04 on October 04, 2024. In the ED, patient received calcium gluconate, Lasix, albuterol, and was started on anticoagulation. Renal service was consulted for acute kidney injury and hyperkalemia. Given extensive DVT, worsening dyspnea, renal failure, and concern for PE, patient will be admitted to [facility] for further workup and management, including echocardiogram, V/Q scan, renal ultrasound, liver ultrasound, TSH, and possible interventional radiology consultation for thrombectomy if evidence of right heart strain. will admit Past Medical History see hpi above Past Surgical History see hpi above Family History Reviewed, non-contributory to the management of this case. Past Social History Patient does drink heavily daily for the last two months he states he drinks 5-6 shots of vodka daily denies drug or or smoking Review of Systems Constitutional: No: Fever, Chills, Sweats, Weakness, Malaise, Other Eyes: No: Pain, Vision change, Conjunctivae inflammation, Eyelid inflammation, Other, Redness ENT: No: Ear pain, Ear discharge, Nose pain, Nose discharge, Nose congestion, Mouth pain, Mouth swelling, Throat pain, Throat swelling, Other Respiratory: Shortness of breath, SOB with excertion; No: Cough, Dry, Wheezing, Hemoptysis, Pleuritic Pain, Sputum, Wheezing, Other Cardiovascular: Edema; No: Chest Pain, Palpitations, Orthopnea, Paroxysmal Noc. Dyspnea, Lt Headedness, Other Gastrointestinal: No: Nausea, Vomiting, Abdominal Pain, Diarrhea, Constipation, Melena, Hematochezia, Other Genitourinary: No Dysuria, No Frequency, No Incontinence, No Hematuria, No Retention, No Other Musculoskeletal: leg pain; No: other, neck pain, shoulder pain, arm pain, back pain, hand pain, foot pain Skin: No: Rash, Lesions, Jaundice, Bruising, Other Neurological: No: Weakness, Numbness, Incoordination, Change in speech, Confusion, Seizures, Other Allergies: Coded Allergies: NO KNOWN ALLERGIES (Unverified , 10/12/24) Exam Vital Signs Vital Signs Date Time Temp Pulse Resp B/P (MAP) Pulse Ox O2 Delivery O2 Flow Rate FiO2 06/28/25 10:38 97.7 119 20 100/59 96 97.7 General Appearance: Alert, Oriented X3, Cooperative, mild distress HEENT: Atraumatic, PERRLA, EOMI, Mucous membr. moist/pink Respiratory: Other (Diminished lung sounds throughout) Cardiovascular: Regular rate, Normal S1, Normal S2, No murmurs Abdominal: Normal bowel sounds, Soft, No tenderness, No hepatospenomegaly, No masses Extremities: No clubbing, No cyanosis, No edema, Normal pulses, Other (Left leg with swelling no erythema compartments soft) Skin: No rashes, No breakdown, No significant lesion Neuro: Other (Neuro nonfocal) Psych/Mental Status: Mental status NL, Mood NL Labs/Xrays Chest x-ray unremarkable Ultrasound shows left lower extremity DVT from the femoral popliteal artery to the tib-fib vein I reviewed labs, imaging CT scan abdomen pelvis, EKG and all diagnostic studies on this patient from ED records and the medical chart Labs Test 06/28/25 13:39 06/28/25 13:38 06/28/25 11:57 06/28/25 11:30 Range/Units POC Glucose 118 H 70-106 mg/dl Troponin I High Sensitivity 28 </=54 ng/L White Blood Count 12.8 H 4.4-10.8 10^3/uL Red Blood Count 4.43 L 4.5-5.90 10^6/uL Hemoglobin 15.1 13.5-17.5 g/dL Hematocrit 45.9 41.0-53.0 % Mean Corpuscular Volume 103.5 H 80.0-100.0 fL Mean Corpuscular Hemoglobin 33.9 H 28.0-32.0 pg Mean Corpuscular Hemoglobin Concent 32.8 32.0-36.0 g/dL Red Cell Distribution Width 13.7 11.8-14.3 % Platelet Count 371 140-450 10^3/uL Mean Platelet Volume 8.4 6.9-10.8 fL Neutrophils (%) (Auto) 79.4 37.0-80.0 % Lymphocytes (%) (Auto) 9.4 L 10.0-50.0 % Monocytes (%) (Auto) 10.3 0.0-12.0 % Eosinophils (%) (Auto) 0.6 0.0-7.0 % Basophils (%) (Auto) 0.3 0.0-2.0 % Neutrophils # (Auto) 10.2 H 1.6-8.6 10 ^3/uL Lymphocytes # (Auto) 1.2 0.4-5.4 10 ^3/uL Monocytes # (Auto) 1.3 0-1.3 10 ^3/uL Eosinophils # (Auto) 0.1 0-0.8 10 ^3/uL Basophils # (Auto) 0 0-0.2 10 ^3/uL Nucleated Red Blood Cells 0.1 % Prothrombin Time 10.5 9.3-11.8 sec Prothrombin Time INR 0.99 0.9-1.15 Activated Partial Thromboplast Time 25.6 24.5-34.5 SEC D-Dimer, Quantitative 10.14 H 0.0-0.49 mg/L FEU Sodium Level 138 136-145 mmol/L Potassium Level 5.6 *H 3.5-5.1 mmol/L Chloride Level 108 H 98-107 mmol/L Carbon Dioxide Level 17 L 20-31 mmol/L Anion Gap 13 5-15 Blood Urea Nitrogen 74 H 9-23 mg/dL Creatinine 7.30 H 0.700-1.30 mg/dL Glomerular Filtration Rate Calc 8 >90 mL/min BUN/Creatinine Ratio 10.1 10.0-20.0 Serum Glucose 125 H 74-106 mg/dL Lactic Acid Level 2.6 *H 0.4-2.0 mmol/L Calcium Level 9.9 8.7-10.4 mg/dL Magnesium Level 1.9 1.6-2.6 mg/dL Total Bilirubin 1.0 0.2-1.0 mg/dL Aspartate Amino Transferase (AST) 51 H 13-40 U/L Alanine Aminotransferase (ALT) 51 H 7-40 U/L Alkaline Phosphatase 122 H 46-116 U/L Total Protein 8.0 5.7-8.2 g/dL Albumin 4.5 3.2-4.8 g/dL Urine Color Yellow Yellow Urine Clarity Turbid H Clear Urine pH 5.0 5.0-9.0 Urine Specific [place] 1.011 1.001-1.035 Urine Protein Trace H Negative Urine Ketones Negative Negative Urine Blood Negative Negative /uL Urine Nitrite Negative Negative Urine Bilirubin Negative Negative Urine Urobilinogen Normal Negative mg/dL Urine Leukocyte Esterase Negative Negative /uL Urine RBC None seen 0 - 3 /hpf Urine Microscopic WBC 3 0-3 /HPF Urine Squamous Epithelial Cells Few <5 /hpf Urine Bacteria Few H None Seen /hpf Urine Glucose Normal Normal mg/dL SEPSIS Sepsis Screen Date sepsis recognized/suspect: Jun 28, 2025 Time Sepsis recognized/suspect: 1042 Recent Procedure: No On Antibiotic Therapy: No Respiratory Rate >20: No Heart Rate >90: Yes Temp<36 C (96.8 F) or >38.3 C: No SBP <90 or MAP <65 mmHG: No New Acute Mental Status Change: No Is the patient on CPAP, BIPAP,: No Physician Orders Chest Portable (06/28/25 11:29) Accucheck (06/28/25 11:29) Blood Culture (06/28/25 11:29) Cefepime 1gm/50ml (Maxipime 1gm/50ml) (06/28/25 11:30) Notify Md If Map <65 Or Bp<90 (06/28/25 11:29) If Map<65 Start Vasopressor (06/28/25 11:29) Sepsis Reassesment After Fluid (06/28/25 12:29) Lt Lower Dvt (06/28/25 11:29) Electrocardigram (06/28/25 11:29) Troponin-I Hs (06/28/25 14:29) Potassium (06/28/25 17:01) *[facility] (06/28/25 13:03) * Radiologist Consult (06/28/25 14:05) Nm Vq Scan (06/28/25 14:08) Potassium (06/28/25 18:00) Lactic Acid W/ Reflex Order (06/28/25 14:08) Thyroid Stimulating Hormone (06/28/25 14:08) Magnesium (06/28/25 14:08) Phosphorus (06/28/25 14:08) Echo 2d Mode Cardiac Dop (06/28/25 14:08) Nm Vq Scan (06/28/25 14:08) Platelet Monitoring (06/28/25 14:08) Vte Protocol Initiated (06/28/25 14:08) Heparin Per Standardized Proce (06/28/25 14:08) Discontinue All Im Injections (06/28/25 14:08) PTPTT (06/28/25 14:08) Complete Blood Count (06/28/25 14:08) Heparin Sodium (Porcine) (06/28/25 14:15) Heparin Drip/D5w 100units/Ml (06/28/25 14:15) Vancomycin (06/28/25 14:15) Cefepime 1 Gm (06/28/25 22:00) Abdomen Complete Sonogram (06/28/25 14:08) Urine Sodium (06/28/25 14:08) Urine Creatinine (06/28/25 14:08) Urine Ethanol (06/28/25 14:08) Etoh Withdrawal Assessment (06/28/25 14:08) Librium 50mg Po Q8hr Day 1 (06/28/25 14:15) Librium 50mg Po Q12hr Day 2 (06/29/25 10:00) Librium 25mg Po Q12hr X Day 3 (06/30/25 10:00) Librium 25mg Po Qam Day 4 (07/01/25 07:00) Banana Bag Ns (06/28/25 18:00) * Wastewater Treatment Engineer Consult (06/28/25 ) Admit (06/28/25 14:08) Allergies (06/28/25 14:08) Code Status (06/28/25 14:08) 0.9% Ns 1000 Ml (06/28/25 14:15) Vital Signs Date Time Temp Pulse Resp B/P (MAP) Pulse Ox O2 Delivery O2 Flow Rate FiO2 06/28/25 10:38 97.7 119 20 100/59 96 97.7 Laboratory Tests Test 06/28/25 11:57 Lactic Acid Level 2.6 mmol/L (0.4-2.0) *H White Blood Count 12.8 10^3/uL (4.4-10.8) H Medications Medications Dose Ordered Sig/Yariel Route Start Time Stop Time Status Last Admin Dose Admin Albuterol 20 mg ONCE ONCE NEB 06/28/25 13:15 06/28/25 13:16 DC 06/28/25 13:35 20 MG Calcium Gluconate/ Sodium Chloride 50 ml @ 120 mls/hr ONCE ONCE IV 06/28/25 13:15 06/28/25 13:39 DC 06/28/25 13:30 120 MLS/HR Cefepime HCl 50 ml @ 12.5 mls/hr ONCE ONCE IV 06/28/25 11:30 06/28/25 15:29 06/28/25 13:31 12.5 MLS/HR Enoxaparin Sodium 70 mg STAT STAT SC 06/28/25 13:12 06/28/25 13:13 DC 06/28/25 13:32 70 MG Sodium Bicarbonate 50 ml ONCE ONCE IV 06/28/25 13:15 06/28/25 13:16 DC 06/28/25 14:02 50 ML Vancomycin HCl 250 ml @ 250 mls/hr ONCE ONCE IV 06/28/25 11:30 06/28/25 12:29 DC 06/28/25 13:30 250 MLS/HR Zirconium Oxide 10 gm ONCE ONCE PO 06/28/25 13:15 06/28/25 13:16 DC 06/28/25 13:30 10 GM Assessment/Plan Assessment/Plan 59-year-old male admitted for extensive left lower extremity DVT with concern for pulmonary embolism, complicated by acute kidney injury, hyperkalemia, and progressive shortness of breath, requiring anticoagulation, renal management, acute Extensive left lower extremity DVT (femoral to tibial vein) found on us provided lovenox in ed Start heparin drip Monitor aPTT per protocol Interventional Radiology consult for possible thrombectomy to left leg Elevate affected extremity Pain control as needed with morphine acute Suspected pulmonary embolism CTA deferred due to KODY V/Q scan ordered fu results ordered Echocardiogram to assess for right heart strain Telemetry monitoring in [facility] If right heart strain cardiology consult ordered heparin for now Acute kidney injury Creatinine 7.30 (baseline 1.04) Renal consult ordered fu results Avoid nephrotoxins Renal ultrasound ordered fu results Strict I&O Gentle IV fluids since normal cxr acute Hyperkalemia Potassium 5.8 Treated with calcium gluconate, albuterol, Lasix Repeat BMP q6h until k is normal Telemetry monitoring in [facility] acute shortness of breath Likely secondary to PE not likely fluid overload cxr normal Supplemental oxygen to keep sats >92% Continuous pulse oximetry ordered vq scan ordered bnp fu results chronic Hypertension with acute hypotension Hold FRANCISCO inhibitor in setting of KODY Monitor BP closely Adjust antihypertensive regimen after renal stabilization cont iv hydration monitor resp status while getting ivf acute Alcohol use disorder with recent cessation CIWA monitoring Thiamine, folate, multivitamin and mag in banana bag Monitor for withdrawal symptoms acute Transaminitis/Likely alcohol-related vs congestion AST/ALT mildly elevated Liver ultrasound ordered chronic problems Hypertension History of cervical spine fusion (1995) FEN / PPx Fluids: hl Electrolytes: Monitor BMP Nutrition: Regular diet DVT Prophylaxis: heparin GI Prophylaxis: pepcid Disposition Admit to [facility] for management of extensive DVT, suspected PE, acute kidney injury, and hyperkalemia. Continue heparin drip, complete V/Q scan and echocardiogram, and coordinate care with Renal, Interventional Radiology Plan discussed with: Patient My Orders Orders - JUSTIN RODRIGUEZ DNP Procedure Category Date Status Time * Radiologist Consult CONS 06/28/25 Transmitted 14:05 Potassium LAB 06/28/25 Verified 18:00 Lactic Acid W/ Reflex LAB 06/28/25 Verified Order 14:08 Thyroid Stimulating LAB 06/28/25 Verified Hormone 14:08 Magnesium LAB 06/28/25 Verified 14:08 Phosphorus LAB 06/28/25 Verified 14:08 Echo 2d Mode Cardiac US 06/28/25 Verified DOP 14:08 Nm Vq Scan NM 06/28/25 Verified 14:08 Platelet Monitoring [facility] 06/28/25 Verified 14:08 Vte Protocol Initiated [facility] 06/28/25 Verified 14:08 Heparin Per [facility] 06/28/25 Verified Standardized Proce 14:08 Discontinue All Im [facility] 06/28/25 Verified Injections 14:08 PTPTT LAB 06/28/25 Verified 14:08 Complete Blood Count LAB 06/28/25 Verified 14:08 Heparin Sodium PHA 06/28/25 Verified (Porcine) 14:15 Heparin Drip/D5w PHA 06/28/25 Verified 100units/Ml 14:15 Vancomycin PHA 06/28/25 Verified 14:15 Cefepime 1 Gm PHA 06/28/25 Verified 22:00 Abdomen Complete US 06/28/25 Verified Sonogram 14:08 Urine Sodium LAB 06/28/25 Verified 14:08 Urine Creatinine LAB 06/28/25 Verified 14:08 Urine Ethanol LAB 06/28/25 Verified 14:08 Etoh Withdrawal [facility] 06/28/25 Verified Assessment 14:08 Librium 50mg Po Q8hr PHA 06/28/25 Verified Day 1 14:15 Librium 50mg Po Q12hr PHA 06/29/25 Verified Day 2 10:00 Librium 25mg Po Q12hr PHA 06/30/25 Verified X Day 3 10:00 Librium 25mg Po Qam PHA 07/01/25 Verified Day 4 07:00 Banana Bag Ns PHA 06/28/25 Verified 18:00 * Wastewater Treatment Engineer CONS 06/28/25 Verified Consult Admit ADMIT 06/28/25 Verified 14:08 Allergies [facility] 06/28/25 Verified 14:08 Code Status CODE 06/28/25 Verified 14:08 0.9% Ns 1000 Ml PHA 06/28/25 Verified 14:15 Date of Service: Jun 28, 2025 Billing Provider: JUSTIN RODRIGUEZ DNP Common Visit Codes: [id number] INP/OBS CARE (HIGH), [id number] CARE 30- 74 MIN (Total critical care time: Approximately 45 minutes This critical care time included obtaining a history; examining the patient; pulse oximetry; ordering and review of studies; arranging urgent treatment with development of a management plan; evaluation of patient's response to treatment; frequent reassessment; and, discussions with other providers.) JUSTIN RODRIGUEZ [facility] Jun 28, 2025 14:20
--- NOTE | 2025-06-28 15:10 | DVH ---
CLINICAL INFORMATION: DVT. Tachycardia. Possible PE. TECHNIQUE: 6.5 mCi of Xenon-133 gas was used for the ventilation portion of the exam. Posterior ventilation imaging was obtained. 4.5 mCi of technetium 99m MAA was used for the perfusion portion of the exam. Imaging was obtained in multiple planes of projection. COMPARISON: Chest radiograph performed the same day. FINDINGS: Perfusion imaging shows no mismatched segmental or subsegmental segmental defects. Ventilation imaging shows no defects. There is normal washout. IMPRESSION: Normal exam. No evidence of pulmonary embolism.
--- NOTE | 2025-06-28 15:45 | DVH ---
ULTRASOUND ABDOMEN: REASON FOR EXAM: Transaminitis. Acute kidney injury. TECHNIQUE: Real-time sector scans in the transverse and longitudinal planes were obtained through the abdomen. FINDINGS: The liver is of normal size and contour. There is no intrahepatic biliary ductal dilatation. There is hepatopetal flow in the portal vein. The common bile duct is not seen. No gallstones or sludge are identified. There is no gallbladder wall thickening nor pericholecystic fluid. There is no sonographic Narayan's sign. The spleen is normal in size. The pancreas is largely obscured by bowel gas. The right kidney measures 9.6 cm. The left kidney measures 9.3 cm. There is no hydronephrosis or nephrolithiasis. There is no evidence of focal renal mass or cyst. The visualized portions of the abdominal aorta demonstrate no evidence of aneurysmal dilatation. The visualized inferior vena cava is unremarkable. There is no free intraperitoneal fluid. IMPRESSION: Diffusely echogenic liver parenchyma. This may be secondary to steatosis or another diffuse hepatic process. Correlate clinically and with liver function tests. The common bile duct is not seen during this exam.
[2025-06-28 15:49] LABS: Nucleated Red Blood Cells % 0.1 %
[2025-06-28 15:51] LABS: Hematocrit 46.7 % (41.0-53.0); Hemoglobin 15.1 g/dL (13.5-17.5); Mean Corpuscular Hemoglobin 34.4 pg (28.0-32.0); Mean Corpuscular Volume 106.3 fL (80.0-100.0)
[2025-06-28 16:01] LABS: Magnesium 1.7 mg/dL (1.6-2.6)
[2025-06-28 16:06] LABS: INR 1.02 (0.9-1.15); Partial Thromboplastin Time 30.2 SEC (24.5-34.5); Prothrombin Time 10.8 sec (9.3-11.8)
[2025-06-28] MEDS ORDERED: MORPHINE SULFATE 4 MG/ML SYR/VIAL IV PRN (17:45)
[2025-06-28] MEDS ORDERED: FOLIC ACID 1 MG, MAGNESIUM SULF SDV 50% 8 MEQ, MULTIPLE VITAMIN 10 ML, THIAMINE INJ 100... INJ SCH (18:00)
[2025-06-28] MEDS ORDERED: FOLIC ACID 1 MG, MAGNESIUM SULF SDV 50% 8 MEQ, MULTIPLE VITAMIN 10 ML, THIAMINE INJ 100... INJ ONE (18:50)
[2025-06-28] MEDS: FOLIC ACID 1 MG, MAGNESIUM SULF SDV 50% 8 MEQ, MULTIPLE VITAMIN 10 ML, THIAMINE INJ 100... INJ ONE (19:30)
[2025-06-28] MEDS ORDERED: CEFEPIME 1GM/50ML 50 ML IV SCH (22:00)
[2025-06-28 22:57] LABS: Lactic Acid w/Reflex 3.1 mmol/L (0.4-2.0)
[2025-06-29 00:52] LABS: INR 0.98 (0.9-1.15); Partial Thromboplastin Time 30.7 SEC (24.5-34.5); Prothrombin Time 10.4 sec (9.3-11.8)
[2025-06-29] MEDS: HEPARIN DRIP/D5W 100UNITS/ML 250 ML IV SCH ×3 (01:15→21:21)
[2025-06-29] MEDS: ACETAMINOPHEN 325 MG TAB PO PRN (01:17)
--- NOTE | 2025-06-29 01:29 | CONS ---
Pharmacy Clinical Information: Chemistry Test 06/28/25 11:57 06/28/25 15:29 Albumin 4.5 g/dL (3.2-4.8) Calcium Level 9.9 mg/dL (8.7-10.4) Magnesium Level 1.9 mg/dL (1.6-2.6) 1.7 mg/dL (1.6-2.6) Total Protein 8.0 g/dL (5.7-8.2) Phosphorus Level 6.4 mg/dL (2.4-5.1) H Coagulation Test 06/28/25 11:57 06/28/25 15:29 06/29/25 00:13 Prothrombin Time 10.5 sec (9.3-11.8) 10.8 sec (9.3-11.8) 10.4 sec (9.3-11.8) Prothrombin Time INR 0.99 (0.9-1.15) 1.02 (0.9-1.15) 0.98 (0.9-1.15) Activated Partial Thromboplast Time 25.6 SEC (24.5-34.5) 30.2 SEC (24.5-34.5) 30.7 SEC (24.5-34.5) D-Dimer, Quantitative 10.14 mg/L FEU (0.0-0.49) H NO BOLUS, START AT 1300 UNITS/HR FOR CURRENT ACTUAL WT PER RN=71.8 KG. PER RN NO SIGNS OF BLEEDING. NEXT PTT DUE 0630. ALINE SANTIAGO Jun 29, 2025 01:29
[2025-06-29 02:19] LABS: Hematocrit 39.1 % (41.0-53.0); Hemoglobin 13.3 g/dL (13.5-17.5); Mean Corpuscular Hemoglobin 34.7 pg (28.0-32.0); Mean Corpuscular Volume 102.2 fL (80.0-100.0); Nucleated Red Blood Cells % 0.1 %
[2025-06-29 02:31] LABS: Alanine Aminotransferase 34 U/L (7-40); Albumin 3.5 g/dL (3.2-4.8); Alkaline Phosphatase 97 U/L (46-116); Anion Gap 9 (5-15); BUN/Creatinine Ratio 16.5 (10.0-20.0); Bilirubin, Total 0.8 mg/dL (0.2-1.0); Carbon Dioxide 20 mmol/L (20-31); Potassium 4.3 mmol/L (3.5-5.1); Sodium 138 mmol/L (136-145); Total Protein 6.1 g/dL (5.7-8.2)
[2025-06-29 02:34] LABS: Calcium 8.6 mg/dL (8.7-10.4); Chloride 109 mmol/L (98-107); Glucose 107 mg/dL (74-106)
[2025-06-29 02:35] LABS: Blood Urea Nitrogen 88 mg/dL (9-23)
[2025-06-29 07:45] VITALS: PULSE 89; RESP 14; O2SAT 96
--- NOTE | 2025-06-29 12:40 | DVHPN2 ---
Subjective left lower extremity with no signs of ischemia Reviewed: H&P Changes from previous H/P or p: No Changes Eyes: No Pain, No Vision change, No Conjunctivae inflammation, No Eyelid inflammation, No Other, No Redness ENT: No Ear pain, No Ear discharge, No Nose pain, No Nose discharge, No Nose congestion, No Mouth pain, No Mouth swelling, No Throat pain, No Throat swelling, No Other Cardiovascular: No Chest Pain, No Palpitations, No Orthopnea, No Paroxysmal Noc. Dyspnea; Edema; No Lt Headedness, No Other Respiratory: No Cough, No Dry; Shortness of breath, SOB with excertion; No Wheezing, No Hemoptysis, No Pleuritic Pain, No Sputum, No Other Gastrointestinal: No Nausea, No Vomiting, No Abdominal Pain, No Diarrhea, No Constipation, No Melena, No Hematochezia, No Other Genitourinary: No Dysuria, No Frequency, No Incontinence, No Hematuria, No Retention, No Other Musculoskeletal: No other, No neck pain, No shoulder pain, No arm pain, No back pain, No hand pain; leg pain; No foot pain Skin: No Rash, No Lesions, No Jaundice, No Bruising, No Other Objective Vitals Vital Signs Date Time Temp Pulse Resp B/P (MAP) Pulse Ox O2 Delivery O2 Flow Rate FiO2 06/29/25 12:00 87 06/29/25 11:45 14 100/52 (68) 100 06/29/25 07:45 Room Air* 0 21 06/29/25 07:45 97.3 97.3 Intake/Output Intake and Output 06/29/25 07:00 Intake Total 2388.200 ml Output Total 400 ml Balance 1988.200 ml Intake IV Total 2388.200 ml Output Urine Total 400 ml General Appearance: Alert, Oriented X3 HEENT: Atraumatic Cardiovascular: Regular rate, Normal S1, Normal S2 Abdomen: Normal bowel sounds Medications Current Medications Medications Dose Ordered Sig/Yariel Route Start Time Stop Time Status Last Admin Dose Admin Heparin Sodium/ Dextrose 250 ml @ 13 mls/hr [id number] IV 06/28/25 23:30 06/29/25 01:15 13 MLS/HR Vancomycin HCl 0 ml @ 0 mls/hr PER PHARMACY IV 06/28/25 14:15 Chlordiazepoxide HCl 50 mg Q12HR PO 06/29/25 10:00 06/29/25 22:01 06/29/25 10:04 50 MG Chlordiazepoxide HCl 25 mg Q12HR PO 06/30/25 10:00 06/30/25 22:01 Chlordiazepoxide HCl 25 mg QAM PO 07/01/25 07:00 07/01/25 07:01 Ondansetron HCl 4 mg Q4HP PRN IV 06/28/25 14:15 Docusate Sodium 100 mg BIDPRN PRN PO 06/28/25 14:15 Nitroglycerin 0.4 mg Q5MINP PRN SL 06/28/25 14:15 Folic Acid 1 mg/ Magnesium Sulfate 8 meq/ Multivitamins 10 ml/Thiamine HCl 100 mg/Sodium Chloride 1,013.2 ml @ 126.247 mls/hr Q24H INJ 06/29/25 18:00 Acetaminophen 650 mg Q6HP PRN PO 06/29/25 01:00 06/29/25 01:17 650 MG Cefepime HCl 50 ml @ 12.5 mls/hr Q24H IV 06/29/25 20:00 Laboratory Results Laboratory Tests 06/29/25 02:04 Chemistry Test 06/28/25 15:29 06/29/25 02:04 Magnesium Level 1.7 mg/dL (1.6-2.6) Phosphorus Level 6.4 mg/dL (2.4-5.1) H Albumin 3.5 g/dL (3.2-4.8) Calcium Level 8.6 mg/dL (8.7-10.4) L Total Protein 6.1 g/dL (5.7-8.2) Coagulation Test 06/28/25 15:29 06/29/25 00:13 06/29/25 07:37 06/29/25 12:08 Prothrombin Time 10.8 sec (9.3-11.8) 10.4 sec (9.3-11.8) Pending Prothrombin Time INR 1.02 (0.9-1.15) 0.98 (0.9-1.15) Pending Activated Partial Thromboplast Time 30.2 SEC (24.5-34.5) 30.7 SEC (24.5-34.5) 72.5 SEC (24.5-34.5) *H Pending Cardiac Markers Test 06/29/25 02:04 B-Type Natriuretic Peptide 28.18 pg/mL (0-100) LFT Test 06/29/25 02:04 Alanine Aminotransferase (ALT) 34 U/L (7-40) Alkaline Phosphatase 97 U/L (46-116) Aspartate Amino Transferase (AST) 33 U/L (13-40) Total Bilirubin 0.8 mg/dL (0.2-1.0) HgA1c, TSH Test 06/28/25 15:29 Thyroid Stimulating Hormone (TSH) 1.23 uIU/mL (0.55-4.78) Urinalysis Test 06/28/25 11:30 Urine Color Yellow (Yellow) Urine Clarity Turbid (Clear) H Urine pH 5.0 (5.0-9.0) Urine Specific [place] 1.011 (1.001-1.035) Urine Protein Trace (Negative) H Urine Ketones Negative (Negative) Urine Blood Negative /uL (Negative) Urine Nitrite Negative (Negative) Urine Bilirubin Negative (Negative) Urine Urobilinogen Normal mg/dL (Negative) Urine Leukocyte Esterase Negative /uL (Negative) Urine RBC None seen /hpf (0 - 3) Urine Microscopic WBC 3 /HPF (0-3) Urine Squamous Epithelial Cells Few /hpf (<5) Urine Bacteria Few /hpf (None Seen) H Urine Glucose Normal mg/dL (Normal) Microbiology Microbiology Date/Time Source Procedure Growth Status 06/28/25 12:00 Blood Blood Culture - Preliminary NO GROWTH AFTER 24 HOURS OF INCUBATION. Resulted Assessment/Plan Assessment/Plan 59-year-old male admitted for extensive left lower extremity DVT with concern for pulmonary embolism, complicated by acute kidney injury, hyperkalemia, and progressive shortness of breath, requiring anticoagulation, renal management, Acute Extensive left lower extremity DVT (femoral to tibial vein) On heparin drip IR consulted acute Suspected pulmonary embolism Hep drip Not able to get CTA VQ scan negative KODY Hyperkalemia Creat 7 on admision baseline 1 IVF Acute hypoxic respiratory failure due to possible PE Hep drip oxygen chronic Hypertension with acute hypotension Hold FRANCISCO inhibitor in setting of KODY Monitor BP closely Adjust antihypertensive regimen after renal stabilization cont iv hydration monitor resp status while getting ivf acute Alcohol use disorder with recent cessation CIWA monitoring Thiamine, folate, multivitamin and mag in banana bag Monitor for withdrawal symptoms acute Transaminitis/Likely alcohol-related vs congestion AST/ALT mildly elevated Liver ultrasound ordered chronic problems Hypertension History of cervical spine fusion (1995) Plan discussed with: Patient My Orders Orders - PIERRE LEHMAN MD Procedure Category Date Status Time Transfer Orders XFER 06/29/25 Transmitted 10:53 Date of Service: Jun 29, 2025 Billing Provider: PIERRE LEHMAN MD Common Visit Codes: [id number] INP/OBS CARE(HIGH) PIERRE LEHMAN MD Jun 29, 2025 12:40
[2025-06-29 12:53] LABS: INR 0.96 (0.9-1.15); Prothrombin Time 10.2 sec (9.3-11.8)
[2025-06-29 12:55] LABS: Partial Thromboplastin Time 81.2 SEC (24.5-34.5)
[2025-06-29] MEDS: VANCOMYCIN 500mg/100mL 100 ML IV ONE (13:45)
[2025-06-29] MEDS ORDERED: HYDR12.59 PO (16:05)
[2025-06-29] MEDS ORDERED: LISI20TA56 PO (16:05)
--- NOTE | 2025-06-29 16:25 | DVHINCON2 ---
Date of service: Jun 29, 2025 Referring Physician Elayne Fortune NP Reason for Consultation Acute kidney injury History of Present Illness Mr. Verdugo is a 59-year-old male without prior knowledge of underlying kidney insufficiency who presented for further evaluation and management of subacute s ymptoms including left lower extremity pain and swelling. His clinical course has been notable for diagnosis of a left lower extremity DVT for which he is receiving systemic anticoagulation with heparin infusion. He underwent a V/Q scan that was low probability for pulmonary embolism. He is seen in his room sitting upright awake alert conversant and in no acute distress. He denies recent change in urinary habits, gross hematuria or dysuria, excessive use of NSAIDs recently. He does admit to drinking more hard liquor on a daily basis for the past several months. He denies recent IV contrast studies prior to this hospitalization. Past Medical History Hypertension Chronic back pain Allergies: Coded Allergies: NO KNOWN ALLERGIES (Unverified , 10/12/24) Home Meds Reported Medications Lisinopril (Lisinopril) 20 Mg Tab, 20 MG PO DAILY for 30 Days, MG 06/29/25 Hydrochlorothiazide (Hydrochlorothiazide) 12.5 Mg Cap, 12.5 MG PO DAILY for 30 Days, MG 06/29/25 Current Medications Current Medications Medications (Trade) Dose Ordered Sig/Yariel Route PRN Reason Start Time Stop Time Status Last Admin Heparin Sodium/ Dextrose 250 ml @ 13 mls/hr [id number] IV 06/28/25 23:30 06/29/25 12:58 DC 06/29/25 01:15 Cefepime HCl 50 ml @ 12.5 mls/hr Q8HR IV 06/28/25 22:00 06/29/25 00:57 DC Chlordiazepoxide HCl (Librium Capsule) 50 mg Q12HR PO 06/29/25 10:00 06/29/25 22:01 06/29/25 10:04 Chlordiazepoxide HCl (Librium Capsule) 25 mg Q12HR PO 06/30/25 10:00 06/30/25 22:01 Chlordiazepoxide HCl (Librium Capsule) 25 mg QAM PO 07/01/25 07:00 07/01/25 07:01 Folic Acid 1 mg/ Magnesium Sulfate 8 meq/ Multivitamins 10 ml/Thiamine HCl 100 mg/Sodium Chloride 1,013.2 ml @ 126.247 mls/hr DAILY@1800 INJ 06/28/25 18:00 06/28/25 18:50 DC Morphine Sulfate 2 mg Q4HPRN PRN IV SEVERE PAIN (7-10 PAIN SCALE) 06/28/25 17:45 06/29/25 00:55 DC Folic Acid 1 mg/ Magnesium Sulfate 8 meq/ Multivitamins 10 ml/Thiamine HCl 100 mg/Sodium Chloride 1,013.2 ml @ 126.247 mls/hr Q24H INJ 06/29/25 18:00 Acetaminophen (Tylenol Tablet) 650 mg Q6HP PRN PO MODERATE PAIN (4-6 PAIN SCALE) 06/29/25 01:00 06/29/25 01:17 Cefepime HCl 50 ml @ 12.5 mls/hr Q24H IV 06/29/25 20:00 Heparin Sodium/ Dextrose 250 ml @ 11 mls/hr [id number] IV 06/29/25 13:00 06/29/25 13:00 Family History: Patient reports no known family medical history. Review of Systems Review of systems as per history of present illness otherwise all systems are reviewed and are noncontributory. H&P Exam Vital Signs/I&O Vital Sign Date Time Temp Pulse Resp B/P (MAP) Pulse Ox O2 Delivery O2 Flow Rate FiO2 06/29/25 13:59 Room Air* 0 21 06/29/25 13:08 97.5 70 14 107/57 (74) 98 97.5 Intake and Output 06/28/25 06/29/25 19:00 07:00 Intake Total 2388.200 ml Output Total 400 ml Balance 1988.200 ml Intake IV Total 2388.200 ml Output Urine Total 400 ml Physical Exam Gen: nad heent: nc/at, mmm lungs: cta anteriorly cvs: no rub abd: soft, bowel sounds audible ext: + LLE edema skin: no rash neuro: alert and oriented Labs/Diagnostic Data Labs/Diagnostic Data Laboratory Tests Test 06/29/25 12:08 06/29/25 07:37 06/29/25 02:04 06/29/25 00:13 Range/Units Prothrombin Time 10.2 10.4 9.3-11.8 sec Prothrombin Time INR 0.96 0.98 0.9-1.15 Activated Partial Thromboplast Time 81.2 *H 72.5 *H 30.7 24.5-34.5 SEC White Blood Count 9.0 4.4-10.8 10^3/uL Red Blood Count 3.82 L 4.5-5.90 10^6/uL Hemoglobin 13.3 L 13.5-17.5 g/dL Hematocrit 39.1 #L 41.0-53.0 % Mean Corpuscular Volume 102.2 H 80.0-100.0 fL Mean Corpuscular Hemoglobin 34.7 H 28.0-32.0 pg Mean Corpuscular Hemoglobin Concent 33.9 32.0-36.0 g/dL Red Cell Distribution Width 13.4 11.8-14.3 % Platelet Count 270 140-450 10^3/uL Mean Platelet Volume 8.3 6.9-10.8 fL Neutrophils (%) (Auto) 65.0 37.0-80.0 % Lymphocytes (%) (Auto) 18.8 10.0-50.0 % Monocytes (%) (Auto) 12.6 H 0.0-12.0 % Eosinophils (%) (Auto) 3.2 0.0-7.0 % Basophils (%) (Auto) 0.4 0.0-2.0 % Neutrophils # (Auto) 5.9 1.6-8.6 10 ^3/uL Lymphocytes # (Auto) 1.7 0.4-5.4 10 ^3/uL Monocytes # (Auto) 1.1 0-1.3 10 ^3/uL Eosinophils # (Auto) 0.3 0-0.8 10 ^3/uL Basophils # (Auto) 0 0-0.2 10 ^3/uL Nucleated Red Blood Cells 0.1 % Sodium Level 138 136-145 mmol/L Potassium Level 4.3 3.5-5.1 mmol/L Chloride Level 109 H 98-107 mmol/L Carbon Dioxide Level 20 20-31 mmol/L Anion Gap 9 5-15 Blood Urea Nitrogen 88 #*H 9-23 mg/dL Creatinine 5.34 H 0.700-1.30 mg/dL Glomerular Filtration Rate Calc 12 >90 mL/min BUN/Creatinine Ratio 16.5 10.0-20.0 Serum Glucose 107 H 74-106 mg/dL Calcium Level 8.6 L 8.7-10.4 mg/dL Total Bilirubin 0.8 0.2-1.0 mg/dL Aspartate Amino Transferase (AST) 33 13-40 U/L Alanine Aminotransferase (ALT) 34 7-40 U/L Alkaline Phosphatase 97 46-116 U/L B-Type Natriuretic Peptide 28.18 0-100 pg/mL Total Protein 6.1 5.7-8.2 g/dL Albumin 3.5 3.2-4.8 g/dL Random Vancomycin Level 17.7 H 5-10 ug/mL Test 06/28/25 22:18 06/28/25 17:58 06/28/25 15:29 06/28/25 13:39 Range/Units Lactic Acid Level 3.1 *H 2.8 *H 0.4-2.0 mmol/L Potassium Level 4.8 3.5-5.1 mmol/L White Blood Count 10.6 4.4-10.8 10^3/uL Red Blood Count 4.39 L 4.5-5.90 10^6/uL Hemoglobin 15.1 13.5-17.5 g/dL Hematocrit 46.7 41.0-53.0 % Mean Corpuscular Volume 106.3 H 80.0-100.0 fL Mean Corpuscular Hemoglobin 34.4 H 28.0-32.0 pg Mean Corpuscular Hemoglobin Concent 32.4 32.0-36.0 g/dL Red Cell Distribution Width 13.5 11.8-14.3 % Platelet Count 283 140-450 10^3/uL Mean Platelet Volume 8.1 6.9-10.8 fL Neutrophils (%) (Auto) 78.4 37.0-80.0 % Lymphocytes (%) (Auto) 10.0 10.0-50.0 % Monocytes (%) (Auto) 10.9 0.0-12.0 % Eosinophils (%) (Auto) 0.3 0.0-7.0 % Basophils (%) (Auto) 0.4 0.0-2.0 % Neutrophils # (Auto) 8.3 1.6-8.6 10 ^3/uL Lymphocytes # (Auto) 1.1 0.4-5.4 10 ^3/uL Monocytes # (Auto) 1.2 0-1.3 10 ^3/uL Eosinophils # (Auto) 0 0-0.8 10 ^3/uL Basophils # (Auto) 0 0-0.2 10 ^3/uL Nucleated Red Blood Cells 0.1 % Prothrombin Time 10.8 9.3-11.8 sec Prothrombin Time INR 1.02 0.9-1.15 Activated Partial Thromboplast Time 30.2 24.5-34.5 SEC Phosphorus Level 6.4 H 2.4-5.1 mg/dL Magnesium Level 1.7 1.6-2.6 mg/dL Troponin I High Sensitivity 27 </=54 ng/L Thyroid Stimulating Hormone (TSH) 1.23 0.55-4.78 uIU/mL Plasma/Serum Blood Alcohol < 3.0 <10 mg/dL POC Glucose 118 H 70-106 mg/dl Test 06/28/25 13:38 06/28/25 11:57 06/28/25 11:30 Range/Units Troponin I High Sensitivity 28 22 </=54 ng/L White Blood Count 12.8 H 4.4-10.8 10^3/uL Red Blood Count 4.43 L 4.5-5.90 10^6/uL Hemoglobin 15.1 13.5-17.5 g/dL Hematocrit 45.9 41.0-53.0 % Mean Corpuscular Volume 103.5 H 80.0-100.0 fL Mean Corpuscular Hemoglobin 33.9 H 28.0-32.0 pg Mean Corpuscular Hemoglobin Concent 32.8 32.0-36.0 g/dL Red Cell Distribution Width 13.7 11.8-14.3 % Platelet Count 371 140-450 10^3/uL Mean Platelet Volume 8.4 6.9-10.8 fL Neutrophils (%) (Auto) 79.4 37.0-80.0 % Lymphocytes (%) (Auto) 9.4 L 10.0-50.0 % Monocytes (%) (Auto) 10.3 0.0-12.0 % Eosinophils (%) (Auto) 0.6 0.0-7.0 % Basophils (%) (Auto) 0.3 0.0-2.0 % Neutrophils # (Auto) 10.2 H 1.6-8.6 10 ^3/uL Lymphocytes # (Auto) 1.2 0.4-5.4 10 ^3/uL Monocytes # (Auto) 1.3 0-1.3 10 ^3/uL Eosinophils # (Auto) 0.1 0-0.8 10 ^3/uL Basophils # (Auto) 0 0-0.2 10 ^3/uL Nucleated Red Blood Cells 0.1 % Prothrombin Time 10.5 9.3-11.8 sec Prothrombin Time INR 0.99 0.9-1.15 Activated Partial Thromboplast Time 25.6 24.5-34.5 SEC D-Dimer, Quantitative 10.14 H 0.0-0.49 mg/L FEU Sodium Level 138 136-145 mmol/L Potassium Level 5.6 *H 3.5-5.1 mmol/L Chloride Level 108 H 98-107 mmol/L Carbon Dioxide Level 17 L 20-31 mmol/L Anion Gap 13 5-15 Blood Urea Nitrogen 74 H 9-23 mg/dL Creatinine 7.30 H 0.700-1.30 mg/dL Glomerular Filtration Rate Calc 8 >90 mL/min BUN/Creatinine Ratio 10.1 10.0-20.0 Serum Glucose 125 H 74-106 mg/dL Lactic Acid Level 2.6 *H 0.4-2.0 mmol/L Calcium Level 9.9 8.7-10.4 mg/dL Magnesium Level 1.9 1.6-2.6 mg/dL Total Bilirubin 1.0 0.2-1.0 mg/dL Aspartate Amino Transferase (AST) 51 H 13-40 U/L Alanine Aminotransferase (ALT) 51 H 7-40 U/L Alkaline Phosphatase 122 H 46-116 U/L Total Protein 8.0 5.7-8.2 g/dL Albumin 4.5 3.2-4.8 g/dL Urine Color Yellow Yellow Urine Clarity Turbid H Clear Urine pH 5.0 5.0-9.0 Urine Specific [place] 1.011 1.001-1.035 Urine Protein Trace H Negative Urine Ketones Negative Negative Urine Blood Negative Negative /uL Urine Nitrite Negative Negative Urine Bilirubin Negative Negative Urine Urobilinogen Normal Negative mg/dL Urine Leukocyte Esterase Negative Negative /uL Urine RBC None seen 0 - 3 /hpf Urine Microscopic WBC 3 0-3 /HPF Urine Squamous Epithelial Cells Few <5 /hpf Urine Bacteria Few H None Seen /hpf Urine Glucose Normal Normal mg/dL Assessment IMP: 1) Hemodynamically mediated acute kidney injury in the setting of relative hypotension and concurrent therapy with FRANCISCO inhibitor. 2) CKD stage II 3) left lower extremity DVT 4) symptomatic hypotension 5) hyperkalemia REC: - agree with cessation of FRANCISCO inhibitor and current treatment with IV fluids - may consider duplex/ ultrasound study of bilateral renal veins and IVC to see if there is extension of thrombus to involve more proximal venous system Serum creatinine elevation disproportionate to hemodynamic insult. - we will continue to follow closely, currently without urgent indication for dialysis. Hyperkalemia improved with medical therapy. - discussed plan of care from Nephrology perspective with Mr. Verdugo, thank you for the consultation Plan discussed with: Patient PETEY KUHN MD Jun 29, 2025 16:25
[2025-06-29 17:00] VITALS: BP 103/68; PULSE 75; RESP 17; TEMP 97.2; O2SAT 100
[2025-06-29] MEDS: SODIUM CHLORIDE 0.9% 1,000 ML IV ONE (17:39)
[2025-06-29] MEDS: FOLIC ACID 1 MG, MAGNESIUM SULF SDV 50% 8 MEQ, MULTIPLE VITAMIN 10 ML, THIAMINE INJ 100... INJ SCH (17:42)
[2025-06-29 19:28] LABS: INR 0.95 (0.9-1.15); Partial Thromboplastin Time 48.0 SEC (24.5-34.5); Prothrombin Time 10.1 sec (9.3-11.8)
[2025-06-29 20:00] VITALS: PULSE 87
[2025-06-29] MEDS: CEFEPIME 1GM/50ML 50 ML IV SCH (20:08)
[2025-06-29 21:00] VITALS: BP 104/70; PULSE 88; RESP 19; TEMP 98; O2SAT 98
[2025-06-30] VITALS (8 sets, daily range): BP systolic 102–116; BP diastolic 56–83; PULSE 68–88; RESP 18–20; TEMP 97.7–98.3; O2SAT 98–100
--- NOTE | 2025-06-30 00:48 | DVHSR ---
APPROVED REPORT EXAM: Two-dimensional and M-mode echocardiogram with Doppler and color Doppler. Blood Pressure: 104/70 mmHg INDICATION Eval for Heart Strain RISK FACTORS Height: 5' 6", Weight: 158 DIMENSIONS LVDd 4.0 (3.8-5.7cm) LA (2D) 4.0 (1.9-4.0cm) Aortic Root 3.2 (2.0-3.7cm) LVDs 2.8 (2.5-4.0cm) LA (MM) (1.9-4.0cm) Aortic Cusp Exc 1.9 (1.5-2.0cm) EF (%) 60.0 (55-70%) Rt. Atrium 4.0 (1.9-4.0cm) Asc. Aorta cm IVSd 0.9 (0.7-1.1cm) RV (D) (1.8-2.4cm) PWd 0.9 (0.7-1.1cm) Mitral Valve Mitral Mitral Stenosis E wave 0.70m/s MV Mean GR. mmHg A wave 0.60m/s MV Peak GR. mmHg E/A ratio 1.2 2D MVA cm2 Aortic Valve Aortic Valve Aortic Stenosis V1 0.90m/s AO Mean GR. 4mmHg V2 1.40m/s AO Peak GR. 8mmHg LVOT Diameter 2.2 (1.8-2.4cm) Doppler TUTU 2.44cm2 Pulmonic Valve V2 0.60m/s Tricuspid Valve TR Velocity 2.30m/s RVSP 31mmHg Conclusion LV EF IS 65% AND IS NORMAL NORMAL RV SIZE AND FUNCTION NORMAL VALVES NO EFFUSION
[2025-06-30 04:07] LABS: Hematocrit 38.6 % (41.0-53.0); Hemoglobin 13.0 g/dL (13.5-17.5); Mean Corpuscular Hemoglobin 34.6 pg (28.0-32.0); Mean Corpuscular Volume 102.6 fL (80.0-100.0); Nucleated Red Blood Cells % 0.1 %
[2025-06-30] MEDS: HYDROcodone-ACET 5/325MG TAB PO PRN (04:56)
[2025-06-30 05:03] LABS: INR 0.96 (0.9-1.15); Partial Thromboplastin Time 68.6 SEC (24.5-34.5); Prothrombin Time 10.2 sec (9.3-11.8)
--- NOTE | 2025-06-30 10:37 | MEDREC ---
[facility] ASP Intervention Section I [facility] ASP Intervention: Review courses of therapy (PLEASE CONSIDER D/C ANTIBIOTIC INABSENCEOF BACTERIAL INFECTION) TOSHA CUENCA PHARMACIST Jun 30, 2025 10:37
[2025-06-30] MEDS: VANCOMYCIN 500mg/100mL 100 ML IV ONE (10:56)
[2025-06-30] MEDS: THIAMINE HCL 100 MG TAB PO ONE (11:02)
[2025-06-30] MEDS: FOLIC ACID 1 MG TAB PO ONE (11:02)
[2025-06-30] MEDS: MULTIPLE VITAMIN TAB PO ONE (11:02)
[2025-06-30] MEDS: MAGNESIUM OXIDE 400 MG TAB PO ONE (11:02)
[2025-06-30 11:36] LABS: INR 0.98 (0.9-1.15); Prothrombin Time 10.4 sec (9.3-11.8)
[2025-06-30 11:39] LABS: Partial Thromboplastin Time 83.5 SEC (24.5-34.5)
--- NOTE | 2025-06-30 11:48 | CONS ---
Pharmacy Clinical Information: HEPARIN DRIP RATE LOWERED FROM 1300 UNITS/HR TO 1100 UNITS/HR PER APTT OF 83.5 (SUPRATHERAPEUTIC) CONFIRMED WITH JOSE OSORIO NEXT APTT DRAW SCHEDULED FOR 1800 PER RX PROTOCOL FRANCIA STARKS PHARMACIST Jun 30, 2025 11:48
[2025-06-30] MEDS: HEPARIN DRIP/D5W 100UNITS/ML 250 ML IV SCH (11:49)
--- NOTE | 2025-06-30 12:21 | DVHPN2 ---
Progress Note Date Seen: Jun 30, 2025 Medical Necessity Reason Pt with a Central, PICC or Fol: No Subjective Patient reports: No new complaints, Feels better Objective vital signs Vital Sign Date Time Temp Pulse Resp B/P (MAP) Pulse Ox O2 Delivery O2 Flow Rate FiO2 06/30/25 08:56 97.7 72 20 106/56 (73) 98 97.7 06/30/25 07:39 Room Air* 0 21 Total Intake and Output 06/29/25 06/29/25 06/30/25 15:00 23:00 07:00 Intake Total 89 ml 270 ml 1688.2 ml Balance 89 ml 270 ml 1688.2 ml medications Current Medications Medications Dose Ordered Sig/Yariel Route Start Time Stop Time Status Last Admin Dose Admin Vancomycin HCl 0 ml @ 0 mls/hr PER PHARMACY IV 06/28/25 14:15 Chlordiazepoxide HCl 25 mg Q12HR PO 06/30/25 10:00 06/30/25 22:01 06/30/25 09:38 25 MG Chlordiazepoxide HCl 25 mg QAM PO 07/01/25 07:00 07/01/25 07:01 Ondansetron HCl 4 mg Q4HP PRN IV 06/28/25 14:15 Docusate Sodium 100 mg BIDPRN PRN PO 06/28/25 14:15 Nitroglycerin 0.4 mg Q5MINP PRN SL 06/28/25 14:15 Acetaminophen 650 mg Q6HP PRN PO 06/29/25 01:00 06/29/25 01:17 650 MG Cefepime HCl 50 ml @ 12.5 mls/hr Q24H IV 06/29/25 20:00 06/29/25 20:08 12.5 MLS/HR Acetaminophen/ Hydrocodone Bitart 1 tab Q6HPRN PRN PO 06/30/25 02:00 06/30/25 11:01 1 TAB Folic Acid 1 mg DAILY PO 07/01/25 10:00 Multivitamins 1 tab DAILY PO 07/01/25 10:00 Magnesium Oxide 400 mg DAILY PO 07/01/25 10:00 Thiamine HCl 100 mg DAILY PO 07/01/25 10:00 Heparin Sodium/ Dextrose 250 ml @ 11 mls/hr [id number] IV 06/30/25 11:45 06/30/25 11:49 11 MLS/HR Examination Gen: Appears stated age, NAD Heart: RRR, normal S1 and S2 Lungs: Bilateral air entry, no rales Ext: No edema Neuro: alert and oriented x 4 laboratory and microbiology Laboratory Tests 06/30/25 03:51 06/29/25 02:04 Test 06/29/25 02:04 Range/Units Serum Glucose 107 H 74-106 mg/dL Microbiology Date/Time Source Procedure Growth Status 06/28/25 12:00 Blood Blood Culture - Preliminary NO GROWTH AFTER 24 HOURS OF INCUBATION. Resulted Labs and/or images reviewed: Labs reviewed by me Problem List/Assessment/Plan Problem List/Assessment/Plan IMP: 1) Hemodynamically mediated acute kidney injury in the setting of relative hypotension and concurrent therapy with FRANCISCO inhibitor. 2) CKD stage II 3) left lower extremity DVT 4) symptomatic hypotension 5) hyperkalemia REC: - Improvement in kidney function noted - BMP in am - Avoidance of RAAS inhibitors, IV contrast studies during time course of KODY - Avoidance of NSAIDs - Encourage oral intake of fluids - Strict I&Os - Will continue to follow Plan discussed with: Patient SAMUEL BREEN GAMING INVESTIGATOR Jun 30, 2025 12:21
--- NOTE | 2025-06-30 16:15 | DVHPN2 ---
Subjective left lower extremity with no signs of ischemia Reviewed: H&P Changes from previous H/P or p: No Changes Eyes: No Pain, No Vision change, No Conjunctivae inflammation, No Eyelid inflammation, No Other, No Redness ENT: No Ear pain, No Ear discharge, No Nose pain, No Nose discharge, No Nose congestion, No Mouth pain, No Mouth swelling, No Throat pain, No Throat swelling, No Other Cardiovascular: No Chest Pain, No Palpitations, No Orthopnea, No Paroxysmal Noc. Dyspnea; Edema; No Lt Headedness, No Other Respiratory: No Cough, No Dry; Shortness of breath, SOB with excertion; No Wheezing, No Hemoptysis, No Pleuritic Pain, No Sputum, No Other Gastrointestinal: No Nausea, No Vomiting, No Abdominal Pain, No Diarrhea, No Constipation, No Melena, No Hematochezia, No Other Genitourinary: No Dysuria, No Frequency, No Incontinence, No Hematuria, No Retention, No Other Musculoskeletal: No other, No neck pain, No shoulder pain, No arm pain, No back pain, No hand pain; leg pain; No foot pain Skin: No Rash, No Lesions, No Jaundice, No Bruising, No Other Objective Vitals Vital Signs Date Time Temp Pulse Resp B/P (MAP) Pulse Ox O2 Delivery O2 Flow Rate FiO2 06/30/25 13:00 97.9 68 20 102/72 (82) 98 97.9 06/30/25 07:39 Room Air* 0 21 Intake/Output Intake and Output 06/30/25 05:00 Intake Total 1060 ml Balance 1060 ml Intake Oral 895 ml IV Total 165 ml # Voids 8 General Appearance: Alert, Oriented X3 HEENT: Atraumatic Cardiovascular: Regular rate, Normal S1, Normal S2 Abdomen: Normal bowel sounds Medications Current Medications Medications Dose Ordered Sig/Yariel Route Start Time Stop Time Status Last Admin Dose Admin Vancomycin HCl 0 ml @ 0 mls/hr PER PHARMACY IV 06/28/25 14:15 Chlordiazepoxide HCl 25 mg Q12HR PO 06/30/25 10:00 06/30/25 22:01 06/30/25 09:38 25 MG Chlordiazepoxide HCl 25 mg QAM PO 07/01/25 07:00 07/01/25 07:01 Ondansetron HCl 4 mg Q4HP PRN IV 06/28/25 14:15 Docusate Sodium 100 mg BIDPRN PRN PO 06/28/25 14:15 Nitroglycerin 0.4 mg Q5MINP PRN SL 06/28/25 14:15 Acetaminophen 650 mg Q6HP PRN PO 06/29/25 01:00 06/29/25 01:17 650 MG Cefepime HCl 50 ml @ 12.5 mls/hr Q24H IV 06/29/25 20:00 06/29/25 20:08 12.5 MLS/HR Acetaminophen/ Hydrocodone Bitart 1 tab Q6HPRN PRN PO 06/30/25 02:00 06/30/25 11:01 1 TAB Folic Acid 1 mg DAILY PO 07/01/25 10:00 Multivitamins 1 tab DAILY PO 07/01/25 10:00 Magnesium Oxide 400 mg DAILY PO 07/01/25 10:00 Thiamine HCl 100 mg DAILY PO 07/01/25 10:00 Heparin Sodium/ Dextrose 250 ml @ 11 mls/hr [id number] IV 06/30/25 11:45 06/30/25 11:49 11 MLS/HR Laboratory Results Laboratory Tests 06/29/25 02:04 06/30/25 03:51 Coagulation Test 06/29/25 18:52 06/30/25 03:51 06/30/25 10:27 Prothrombin Time 10.1 sec (9.3-11.8) 10.2 sec (9.3-11.8) 10.4 sec (9.3-11.8) Prothrombin Time INR 0.95 (0.9-1.15) 0.96 (0.9-1.15) 0.98 (0.9-1.15) Activated Partial Thromboplast Time 48.0 SEC (24.5-34.5) H 68.6 SEC (24.5-34.5) H 83.5 SEC (24.5-34.5) *H Urinalysis Test 06/28/25 11:30 Urine Color Yellow (Yellow) Urine Clarity Turbid (Clear) H Urine pH 5.0 (5.0-9.0) Urine Specific [place] 1.011 (1.001-1.035) Urine Protein Trace (Negative) H Urine Ketones Negative (Negative) Urine Blood Negative /uL (Negative) Urine Nitrite Negative (Negative) Urine Bilirubin Negative (Negative) Urine Urobilinogen Normal mg/dL (Negative) Urine Leukocyte Esterase Negative /uL (Negative) Urine RBC None seen /hpf (0 - 3) Urine Microscopic WBC 3 /HPF (0-3) Urine Squamous Epithelial Cells Few /hpf (<5) Urine Bacteria Few /hpf (None Seen) H Urine Glucose Normal mg/dL (Normal) Microbiology Microbiology Date/Time Source Procedure Growth Status 06/28/25 12:00 Blood Blood Culture - Preliminary NO GROWTH AFTER 48 HOURS OF INCUBATION. Resulted Assessment/Plan Assessment/Plan 59-year-old male admitted for extensive left lower extremity DVT with concern for pulmonary embolism, complicated by acute kidney injury, hyperkalemia, and progressive shortness of breath, requiring anticoagulation, renal management, Acute Extensive left lower extremity DVT (femoral to tibial vein) On heparin drip IR consulted acute Suspected pulmonary embolism Hep drip Not able to get CTA VQ scan negative Will obtain CT angio once renal function better KODY Hyperkalemia Creat 7 on admision baseline 1>2.21 IVF Acute hypoxic respiratory failure due to possible PE Hep drip oxygen chronic Hypertension with acute hypotension Hold FRANCISCO inhibitor in setting of KODY Monitor BP closely Adjust antihypertensive regimen after renal stabilization cont iv hydration monitor resp status while getting ivf acute Alcohol use disorder with recent cessation CIWA monitoring Thiamine, folate, multivitamin and mag in banana bag Monitor for withdrawal symptoms acute Transaminitis/Likely alcohol-related vs congestion AST/ALT mildly elevated Liver ultrasound ordered chronic problems Hypertension History of cervical spine fusion (1995) Plan discussed with: Patient Date of Service: Jun 30, 2025 Billing Provider: PIERRE LEHMAN MD Common Visit Codes: [id number] INP/OBS CARE(HIGH) PIERRE LEHMAN MD Jun 30, 2025 16:15
[2025-06-30 18:32] LABS: INR 0.95 (0.9-1.15); Partial Thromboplastin Time 65.2 SEC (24.5-34.5); Prothrombin Time 10.1 sec (9.3-11.8)
[2025-07-01] VITALS (9 sets, daily range): BP systolic 102–121; BP diastolic 64–78; PULSE 64–103; RESP 16–18; TEMP 97.3–98.9; O2SAT 98–100
[2025-07-01 01:19] LABS: INR 0.96 (0.9-1.15); Partial Thromboplastin Time 31.3 SEC (24.5-34.5); Prothrombin Time 10.2 sec (9.3-11.8)
[2025-07-01] MEDS: HEPARIN SODIUM (PORCINE) 5000 UNITS/ML 1ML VIAL IV ONE (02:15)
[2025-07-01] MEDS: HEPARIN DRIP/D5W 100UNITS/ML 250 ML IV SCH ×2 (02:17→08:39)
[2025-07-01 06:31] LABS: Hemoglobin 13.1 g/dL (13.5-17.5); Mean Corpuscular Hemoglobin 34.5 pg (28.0-32.0); Nucleated Red Blood Cells % 0.0 %
[2025-07-01 06:34] LABS: Hematocrit 38.9 % (41.0-53.0); Mean Corpuscular Volume 102.0 fL (80.0-100.0)
[2025-07-01 06:48] LABS: Anion Gap 5 (5-15); Carbon Dioxide 26 mmol/L (20-31); Sodium 141 mmol/L (136-145)
[2025-07-01 06:49] LABS: Calcium 8.9 mg/dL (8.7-10.4); Chloride 110 mmol/L (98-107); Potassium 5.5 mmol/L (3.5-5.1)
[2025-07-01 06:54] LABS: BUN/Creatinine Ratio 24.7 (10.0-20.0); Glucose 89 mg/dL (74-106)
[2025-07-01 06:56] LABS: Blood Urea Nitrogen 40 mg/dL (9-23)
[2025-07-01 06:59] LABS: INR 1.00 (0.9-1.15); Prothrombin Time 10.6 sec (9.3-11.8)
[2025-07-01 07:06] LABS: Partial Thromboplastin Time > 139.0 SEC (24.5-34.5)
--- NOTE | 2025-07-01 07:18 | CONS ---
Pharmacy Clinical Information: HOLD HEPARIN DRIP INFUSION FOR 1 HOUR (FROM 0710 TO 0810) AND DECREASE HEPARIN RATE TO 11 ML/HR OR 1100 UNITS/HR SINCE APTT > 139.0 @0554 ON 07/01 PER RX PROTOCOL. NEXT APTT VICKIE 6 HOURS FROM STARTING NEW HEPARIN RATE OF 11/HR @0810. AVANI GARCIA AWARE CHANGED IN RATE AND REPEATED BACK FROM 14 ML/HR TO 11 ML/HR AND START AT 0810 ON 07/01. EDDIE NEAL PHARMACIST Jul 01, 2025 07:18
[2025-07-01] MEDS: THIAMINE HCL 100 MG TAB PO SCH (08:45)
[2025-07-01] MEDS: MULTIPLE VITAMIN TAB PO SCH (08:45)
[2025-07-01] MEDS: MAGNESIUM OXIDE 400 MG TAB PO SCH (08:45)
[2025-07-01] MEDS: FOLIC ACID 1 MG TAB PO SCH (08:46)
--- NOTE | 2025-07-01 10:22 | DVHPN2 ---
Progress Note Date Seen: Jul 01, 2025 Medical Necessity Reason Pt with a Central, PICC or Fol: No Objective vital signs Vital Sign Date Time Temp Pulse Resp B/P (MAP) Pulse Ox O2 Delivery O2 Flow Rate FiO2 07/01/25 09:00 98.1 70 16 102/69 (80) 98 98.1 06/30/25 20:00 Room Air* 0 21 Total Intake and Output 06/30/25 06/30/25 07/01/25 15:00 23:00 07:00 Intake Total 180 ml 520 ml 550 ml Output Total 600 ml Balance 180 ml 520 ml -50 ml medications Current Medications Medications Dose Ordered Sig/Yariel Route Start Time Stop Time Status Last Admin Dose Admin Vancomycin HCl 0 ml @ 0 mls/hr PER PHARMACY IV 06/28/25 14:15 Ondansetron HCl 4 mg Q4HP PRN IV 06/28/25 14:15 Docusate Sodium 100 mg BIDPRN PRN PO 06/28/25 14:15 Nitroglycerin 0.4 mg Q5MINP PRN SL 06/28/25 14:15 Acetaminophen 650 mg Q6HP PRN PO 06/29/25 01:00 06/29/25 01:17 650 MG Cefepime HCl 50 ml @ 12.5 mls/hr Q24H IV 06/29/25 20:00 06/30/25 19:44 12.5 MLS/HR Acetaminophen/ Hydrocodone Bitart 1 tab Q6HPRN PRN PO 06/30/25 02:00 07/01/25 08:45 1 TAB Folic Acid 1 mg DAILY PO 07/01/25 10:00 07/01/25 08:46 1 MG Multivitamins 1 tab DAILY PO 07/01/25 10:00 07/01/25 08:45 1 TAB Magnesium Oxide 400 mg DAILY PO 07/01/25 10:00 07/01/25 08:45 400 MG Thiamine HCl 100 mg DAILY PO 07/01/25 10:00 07/01/25 08:45 100 MG Heparin Sodium/ Dextrose 250 ml @ 11 mls/hr [id number] IV 07/01/25 08:10 07/01/25 08:39 11 MLS/HR Examination: GENERAL:Normal, CVS:Normal laboratory and microbiology Laboratory Tests 07/01/25 05:54 Test 07/01/25 05:54 Range/Units Serum Glucose 89 74-106 mg/dL Microbiology Date/Time Source Procedure Growth Status 06/28/25 12:00 Blood Blood Culture - Preliminary NO GROWTH AFTER 48 HOURS OF INCUBATION. Resulted Problem List/Assessment/Plan Problem List/Assessment/Plan Acute kidney injury acute DVT lactic acidosis hypotension etoh abuse on withdrawal protocol hyperkalemia [place] resolving, hyperkalemia noted. treatment ordered monitor UOP rec 1L NS etoh CIWA ordered by primary AC per primary team echo noted NM neg for PE US Abd shows no renal findings Plan discussed with: Patient SHIRA MIKE MD Jul 01, 2025 10:22
[2025-07-01] MEDS ORDERED: VANCOMYCIN 750MG KIT 100 ML IV ONE (12:00)
[2025-07-01] MEDS ORDERED: CEFEPIME 1GM/50ML 50 ML IV SCH (12:00)
[2025-07-01] MEDS: SODIUM BICARB 8.4% 50Meq/50ml SYR Vial IV ONE (12:46)
[2025-07-01] MEDS: DEXTROSE (50%) 50ML SYRG IV ONE (12:46)
[2025-07-01] MEDS: SODIUM CHLORIDE 0.9% 1,000 ML IV ONE (12:46)
[2025-07-01] MEDS: InsuLIN REG 1unit/0.01ml Soln (100units/ml) IV ONE (12:48)
--- NOTE | 2025-07-01 15:30 | DVHPN2 ---
Subjective left lower extremity with no signs of ischemia Reviewed: H&P Changes from previous H/P or p: No Changes Eyes: No Pain, No Vision change, No Conjunctivae inflammation, No Eyelid inflammation, No Other, No Redness ENT: No Ear pain, No Ear discharge, No Nose pain, No Nose discharge, No Nose congestion, No Mouth pain, No Mouth swelling, No Throat pain, No Throat swelling, No Other Cardiovascular: No Chest Pain, No Palpitations, No Orthopnea, No Paroxysmal Noc. Dyspnea; Edema; No Lt Headedness, No Other Respiratory: No Cough, No Dry; Shortness of breath, SOB with excertion; No Wheezing, No Hemoptysis, No Pleuritic Pain, No Sputum, No Other Gastrointestinal: No Nausea, No Vomiting, No Abdominal Pain, No Diarrhea, No Constipation, No Melena, No Hematochezia, No Other Genitourinary: No Dysuria, No Frequency, No Incontinence, No Hematuria, No Retention, No Other Musculoskeletal: No other, No neck pain, No shoulder pain, No arm pain, No back pain, No hand pain; leg pain; No foot pain Skin: No Rash, No Lesions, No Jaundice, No Bruising, No Other Objective Vitals Vital Signs Date Time Temp Pulse Resp B/P (MAP) Pulse Ox O2 Delivery O2 Flow Rate FiO2 07/01/25 12:40 98.9 82 18 114/75 (88) 100 98.9 07/01/25 08:30 Room Air* 0 21 Intake/Output Intake and Output 07/01/25 07:00 Intake Total 1250 ml Output Total 600 ml Balance 650 ml Intake Oral 1200 ml IV Total 50 ml Output Urine Total 600 ml # Voids 7 General Appearance: Alert, Oriented X3 HEENT: Atraumatic Cardiovascular: Regular rate, Normal S1, Normal S2 Abdomen: Normal bowel sounds Medications Current Medications Medications Dose Ordered Sig/Yariel Route Start Time Stop Time Status Last Admin Dose Admin Ondansetron HCl 4 mg Q4HP PRN IV 06/28/25 14:15 Docusate Sodium 100 mg BIDPRN PRN PO 06/28/25 14:15 Nitroglycerin 0.4 mg Q5MINP PRN SL 06/28/25 14:15 Acetaminophen 650 mg Q6HP PRN PO 06/29/25 01:00 06/29/25 01:17 650 MG Acetaminophen/ Hydrocodone Bitart 1 tab Q6HPRN PRN PO 06/30/25 02:00 07/01/25 08:45 1 TAB Folic Acid 1 mg DAILY PO 07/01/25 10:00 07/01/25 08:46 1 MG Multivitamins 1 tab DAILY PO 07/01/25 10:00 07/01/25 08:45 1 TAB Magnesium Oxide 400 mg DAILY PO 07/01/25 10:00 07/01/25 08:45 400 MG Thiamine HCl 100 mg DAILY PO 07/01/25 10:00 07/01/25 08:45 100 MG Heparin Sodium/ Dextrose 250 ml @ 11 mls/hr [id number] IV 07/01/25 08:10 07/01/25 08:39 11 MLS/HR Laboratory Results Laboratory Tests 07/01/25 05:54 Chemistry Test 07/01/25 05:54 Calcium Level 8.9 mg/dL (8.7-10.4) Coagulation Test 06/30/25 18:05 07/01/25 00:50 07/01/25 05:54 Prothrombin Time 10.1 sec (9.3-11.8) 10.2 sec (9.3-11.8) 10.6 sec (9.3-11.8) Prothrombin Time INR 0.95 (0.9-1.15) 0.96 (0.9-1.15) 1.00 (0.9-1.15) Activated Partial Thromboplast Time 65.2 SEC (24.5-34.5) H 31.3 SEC (24.5-34.5) > 139.0 SEC (24.5-34.5) *H Urinalysis Test 06/28/25 11:30 Urine Color Yellow (Yellow) Urine Clarity Turbid (Clear) H Urine pH 5.0 (5.0-9.0) Urine Specific [place] 1.011 (1.001-1.035) Urine Protein Trace (Negative) H Urine Ketones Negative (Negative) Urine Blood Negative /uL (Negative) Urine Nitrite Negative (Negative) Urine Bilirubin Negative (Negative) Urine Urobilinogen Normal mg/dL (Negative) Urine Leukocyte Esterase Negative /uL (Negative) Urine RBC None seen /hpf (0 - 3) Urine Microscopic WBC 3 /HPF (0-3) Urine Squamous Epithelial Cells Few /hpf (<5) Urine Bacteria Few /hpf (None Seen) H Urine Glucose Normal mg/dL (Normal) Microbiology Microbiology Date/Time Source Procedure Growth Status 06/28/25 12:00 Blood Blood Culture - Preliminary NO GROWTH AFTER 72 HOURS OF INCUBATION. Resulted Assessment/Plan Assessment/Plan 59-year-old male admitted for extensive left lower extremity DVT with concern for pulmonary embolism, complicated by acute kidney injury, hyperkalemia, and progressive shortness of breath, requiring anticoagulation, renal management, Acute Extensive left lower extremity DVT (femoral to tibial vein) On heparin drip IR consulted> no need for any intervention acute Suspected pulmonary embolism Hep drip Not able to get CTA VQ scan negative Will obtain CT angio once renal function better KODY Hyperkalemia Creat 7 on admision baseline 1>2.21>1.62 IVF Acute hypoxic respiratory failure due to possible PE Hep drip oxygen chronic Hypertension with acute hypotension Hold FRANCISCO inhibitor in setting of KODY Monitor BP closely Adjust antihypertensive regimen after renal stabilization cont iv hydration monitor resp status while getting ivf acute Alcohol use disorder with recent cessation CIWA monitoring Thiamine, folate, multivitamin and mag in banana bag Monitor for withdrawal symptoms acute Transaminitis/Likely alcohol-related vs congestion AST/ALT mildly elevated Liver ultrasound ordered chronic problems Hypertension History of cervical spine fusion (1995) Plan discussed with: Patient Date of Service: Jul 01, 2025 Billing Provider: PIERRE LEHMAN MD Common Visit Codes: [id number] INP/OBS CARE(HIGH) PIERRE LEHMAN MD Jul 01, 2025 15:30
[2025-07-01 16:50] LABS: INR 1.02 (0.9-1.15); Partial Thromboplastin Time 54.1 SEC (24.5-34.5); Prothrombin Time 10.8 sec (9.3-11.8)
--- NOTE | 2025-07-01 17:16 | CONS ---
Pharmacy Clinical Information: HEPARIN DRIP, DVT PROTOCOL @8892 APTT 54.1 - NO BOLUS / NO CHANGE NEXT APTT DRAW SCHEDULED @2300 PER RX PROTOCOL CONFIRMED AND READ BACK WITH RN WINDY CORONADO [facility] RESIDENT Jul 01, 2025 17:16
[2025-07-01] MEDS: KETOROLAC TROMETH 30 MG/ML 1ML VIAL IV ONE (18:36)
[2025-07-01 23:30] LABS: INR 0.97 (0.9-1.15); Partial Thromboplastin Time 48.4 SEC (24.5-34.5); Prothrombin Time 10.3 sec (9.3-11.8)
[2025-07-02] VITALS (9 sets, daily range): BP systolic 103–131; BP diastolic 66–79; PULSE 73–114; RESP 16–19; TEMP 97.6–98.9; O2SAT 97–100
[2025-07-02] MEDS: HYDROcodone-ACET 10/325MG TAB PO ONE (00:51)
[2025-07-02] MEDS: HEPARIN DRIP/D5W 100UNITS/ML 250 ML IV SCH (00:53)
[2025-07-02 05:16] LABS: Nucleated Red Blood Cells % 0.0 %
[2025-07-02 05:18] LABS: Hematocrit 35.9 % (41.0-53.0); Hemoglobin 12.1 g/dL (13.5-17.5); Mean Corpuscular Hemoglobin 34.3 pg (28.0-32.0); Mean Corpuscular Volume 101.7 fL (80.0-100.0)
[2025-07-02 05:29] LABS: INR 0.99 (0.9-1.15); Partial Thromboplastin Time 65.8 SEC (24.5-34.5); Prothrombin Time 10.5 sec (9.3-11.8)
[2025-07-02 05:49] LABS: Anion Gap 7 (5-15); Carbon Dioxide 26 mmol/L (20-31); Sodium 142 mmol/L (136-145)
[2025-07-02 05:55] LABS: Glucose 101 mg/dL (74-106)
[2025-07-02 05:58] LABS: Calcium 8.7 mg/dL (8.7-10.4); Chloride 109 mmol/L (98-107); Potassium 5.2 mmol/L (3.5-5.1)
[2025-07-02 06:09] LABS: BUN/Creatinine Ratio 20.8 (10.0-20.0)
[2025-07-02 06:10] LABS: Blood Urea Nitrogen 30 mg/dL (9-23)
--- NOTE | 2025-07-02 09:33 | DVH ---
EXAM: CT CT ANGIO CHEST CONTRAST History: PE rule out Comparison Study: None TECHNIQUE: A digital sales and marketing executive image was obtained. During the uneventful, intravenous administration of contrast material, multislice data acquisition was obtained through the chest. 3-D postprocessing is performed by technologist including MIP imaging Radiation Dose : CTDI vol 23.6 mGy, DLP 782.7 mGy*cm. FINDINGS: Evaluation is degraded by respiratory motion. Lungs: There are mild ground-glass opacities within the lower lobes. Pleura: Unremarkable Heart/Great vessels: There is mild cardiomegaly. There are filling defects within the right lower and middle lobe pulmonary arteries extending to involve several subsegmental branches. There is no CT evidence of right heart strain. The aorta is unremarkable. Mediastinum: Unremarkable. Soft tissues/Bones: Unremarkable Upper abdomen: Incompletely assessed left renal calculus. IMPRESSION: 1. Right-sided segmental and subsegmental pulmonary emboli as detailed. No CT evidence of right heart strain. 2. Nonspecific ground-glass opacities within the lower lobes and peripheral with atelectasis, though infectious / inflammatory process cannot be excluded in the appropriate clinical setting. 3. Additional findings as detailed.
--- NOTE | 2025-07-02 10:18 | DVHPN2 ---
Progress Note Date Seen: Jul 02, 2025 Medical Necessity Reason Pt with a Central, PICC or Fol: No Objective vital signs Vital Sign Date Time Temp Pulse Resp B/P (MAP) Pulse Ox O2 Delivery O2 Flow Rate FiO2 07/02/25 09:01 98.9 77 19 103/66 (78) 100 98.9 07/02/25 08:21 Room Air* 0 21 Total Intake and Output 07/01/25 07/01/25 07/02/25 15:00 23:00 07:00 Intake Total 914 ml 410 ml Balance 914 ml 410 ml medications Current Medications Medications Dose Ordered Sig/Yariel Route Start Time Stop Time Status Last Admin Dose Admin Ondansetron HCl 4 mg Q4HP PRN IV 06/28/25 14:15 Docusate Sodium 100 mg BIDPRN PRN PO 06/28/25 14:15 Nitroglycerin 0.4 mg Q5MINP PRN SL 06/28/25 14:15 Acetaminophen 650 mg Q6HP PRN PO 06/29/25 01:00 06/29/25 01:17 650 MG Acetaminophen/ Hydrocodone Bitart 1 tab Q6HPRN PRN PO 06/30/25 02:00 07/02/25 08:21 1 TAB Folic Acid 1 mg DAILY PO 07/01/25 10:00 07/02/25 09:54 1 MG Multivitamins 1 tab DAILY PO 07/01/25 10:00 07/02/25 09:54 1 TAB Magnesium Oxide 400 mg DAILY PO 07/01/25 10:00 07/02/25 09:54 400 MG Thiamine HCl 100 mg DAILY PO 07/01/25 10:00 07/02/25 09:53 100 MG Heparin Sodium/ Dextrose 250 ml @ 13 mls/hr [id number] IV 07/02/25 00:15 07/02/25 00:53 13 MLS/HR Examination: GENERAL:Normal, CVS:Normal, SKIN:Abnormal laboratory and microbiology Laboratory Tests 07/02/25 04:39 07/02/25 04:29 Test 07/02/25 04:29 Range/Units Serum Glucose 101 74-106 mg/dL Microbiology Date/Time Source Procedure Growth Status 06/28/25 12:00 Blood Blood Culture - Preliminary NO GROWTH AFTER 72 HOURS OF INCUBATION. Resulted Problem List/Assessment/Plan Problem List/Assessment/Plan Acute kidney injury acute DVT lactic acidosis hypotension etoh abuse on withdrawal protocol hyperkalemia [place] resolving, hyperkalemia noted. treatment ordered monitor UOP rec 1L NS-> extend fluids b/c noted CTA PE protocol was ordered. patient is elevated risk for contrast induced nephropathy given recent SANTO post contrast fluid and lasix, monitor uop daily lokelma potassium restricted fiet etoh CIWA ordered by primary AC per primary team echo noted NM neg for PE US Abd shows no renal findings Plan discussed with: Patient My Orders My Orders Orders - SHIRA MIKE MD Procedure Category Date Status Time Sodium Zirconium PHA 07/02/25 Verified Cyclosilicate 10:15 NS PHA 07/02/25 Verified 10:15 Sodium Bicarb PHA 07/02/25 Verified 50meq/50ml Vial 10:15 Furosemide Injection PHA 07/02/25 Verified (Lasix Injection) 10:15 Basic Metabolic Panel LAB 07/03/25 Verified 04:00 SHIRA MIKE MD Jul 02, 2025 10:17
--- NOTE | 2025-07-02 10:39 | DVHPN2 ---
Subjective no SOB or leg pain Reviewed: H&P Changes from previous H/P or p: No Changes Eyes: No Pain, No Vision change, No Conjunctivae inflammation, No Eyelid inflammation, No Other, No Redness ENT: No Ear pain, No Ear discharge, No Nose pain, No Nose discharge, No Nose congestion, No Mouth pain, No Mouth swelling, No Throat pain, No Throat swelling, No Other Cardiovascular: No Chest Pain, No Palpitations, No Orthopnea, No Paroxysmal Noc. Dyspnea; Edema; No Lt Headedness, No Other Respiratory: No Cough, No Dry; Shortness of breath, SOB with excertion; No Wheezing, No Hemoptysis, No Pleuritic Pain, No Sputum, No Other Gastrointestinal: No Nausea, No Vomiting, No Abdominal Pain, No Diarrhea, No Constipation, No Melena, No Hematochezia, No Other Genitourinary: No Dysuria, No Frequency, No Incontinence, No Hematuria, No Retention, No Other Musculoskeletal: No other, No neck pain, No shoulder pain, No arm pain, No back pain, No hand pain; leg pain; No foot pain Skin: No Rash, No Lesions, No Jaundice, No Bruising, No Other Objective Vitals Vital Signs Date Time Temp Pulse Resp B/P (MAP) Pulse Ox O2 Delivery O2 Flow Rate FiO2 07/02/25 09:01 98.9 77 19 103/66 (78) 100 98.9 07/02/25 08:21 Room Air* 0 21 Intake/Output Intake and Output 07/02/25 07:00 Intake Total 1324 ml Balance 1324 ml Intake Oral 1324 ml # Voids 17 General Appearance: Alert, Oriented X3 HEENT: Atraumatic Cardiovascular: Regular rate, Normal S1, Normal S2 Abdomen: Normal bowel sounds Medications Current Medications Medications Dose Ordered Sig/Yariel Route Start Time Stop Time Status Last Admin Dose Admin Ondansetron HCl 4 mg Q4HP PRN IV 06/28/25 14:15 Docusate Sodium 100 mg BIDPRN PRN PO 06/28/25 14:15 Nitroglycerin 0.4 mg Q5MINP PRN SL 06/28/25 14:15 Acetaminophen 650 mg Q6HP PRN PO 06/29/25 01:00 06/29/25 01:17 650 MG Acetaminophen/ Hydrocodone Bitart 1 tab Q6HPRN PRN PO 06/30/25 02:00 07/02/25 08:21 1 TAB Folic Acid 1 mg DAILY PO 07/01/25 10:00 07/02/25 09:54 1 MG Multivitamins 1 tab DAILY PO 07/01/25 10:00 07/02/25 09:54 1 TAB Magnesium Oxide 400 mg DAILY PO 07/01/25 10:00 07/02/25 09:54 400 MG Thiamine HCl 100 mg DAILY PO 07/01/25 10:00 07/02/25 09:53 100 MG Heparin Sodium/ Dextrose 250 ml @ 13 mls/hr [id number] IV 07/02/25 00:15 07/02/25 00:53 13 MLS/HR Zirconium Oxide 10 gm BID PO 07/02/25 10:15 07/04/25 10:14 Laboratory Results Laboratory Tests 07/02/25 04:29 07/02/25 04:39 Chemistry Test 07/02/25 04:29 Calcium Level 8.7 mg/dL (8.7-10.4) Coagulation Test 07/01/25 14:55 07/01/25 22:56 07/02/25 04:29 Prothrombin Time 10.8 sec (9.3-11.8) 10.3 sec (9.3-11.8) 10.5 sec (9.3-11.8) Prothrombin Time INR 1.02 (0.9-1.15) 0.97 (0.9-1.15) 0.99 (0.9-1.15) Activated Partial Thromboplast Time 54.1 SEC (24.5-34.5) H 48.4 SEC (24.5-34.5) H 65.8 SEC (24.5-34.5) H Urinalysis Test 06/28/25 11:30 Urine Color Yellow (Yellow) Urine Clarity Turbid (Clear) H Urine pH 5.0 (5.0-9.0) Urine Specific [place] 1.011 (1.001-1.035) Urine Protein Trace (Negative) H Urine Ketones Negative (Negative) Urine Blood Negative /uL (Negative) Urine Nitrite Negative (Negative) Urine Bilirubin Negative (Negative) Urine Urobilinogen Normal mg/dL (Negative) Urine Leukocyte Esterase Negative /uL (Negative) Urine RBC None seen /hpf (0 - 3) Urine Microscopic WBC 3 /HPF (0-3) Urine Squamous Epithelial Cells Few /hpf (<5) Urine Bacteria Few /hpf (None Seen) H Urine Glucose Normal mg/dL (Normal) Microbiology Microbiology Date/Time Source Procedure Growth Status 06/28/25 12:00 Blood Blood Culture - Preliminary NO GROWTH AFTER 72 HOURS OF INCUBATION. Resulted Assessment/Plan Assessment/Plan 59-year-old male admitted for extensive left lower extremity DVT with concern for pulmonary embolism, complicated by acute kidney injury, hyperkalemia, and progressive shortness of breath, requiring anticoagulation, renal management, Acute Extensive left lower extremity DVT (femoral to tibial vein) On heparin drip IR consulted> no need for any intervention Acute PE Hep drip Not able to get CTA VQ scan negative Will obtain CT angio once renal function better CT angio confirmed acute PE on right segmental and subsegmental, no signs of heart strain Switch to eliquis KODY Hyperkalemia Creat 7 on admision baseline 1>2.21>1.62>1.4 IVF Monitor BMP Acute hypoxic respiratory failure due to possible PE Hep drip oxygen chronic Hypertension with acute hypotension Hold FRANCISCO inhibitor in setting of KODY Monitor BP closely Adjust antihypertensive regimen after renal stabilization cont iv hydration monitor resp status while getting ivf acute Alcohol use disorder with recent cessation CIWA monitoring Thiamine, folate, multivitamin and mag in banana bag Monitor for withdrawal symptoms acute Transaminitis/Likely alcohol-related vs congestion AST/ALT mildly elevated Liver ultrasound ordered chronic problems Hypertension History of cervical spine fusion (1995) Dispo: DC tomorrow if creatinine does not get worse after CT angio Plan discussed with: Patient My Orders Orders - PIERRE LEHMAN MD Procedure Category Date Status Time Ct Angio Chest CT 07/02/25 Resulted Contrast 06:55 Date of Service: Jul 02, 2025 Billing Provider: PIERRE LEHMAN MD Common Visit Codes: [id number] INP/OBS CARE(HIGH) PIRERE LEHMAN MD Jul 02, 2025 10:39
[2025-07-02 11:20] LABS: INR 0.97 (0.9-1.15); Partial Thromboplastin Time 34.9 SEC (24.5-34.5); Prothrombin Time 10.3 sec (9.3-11.8)
[2025-07-02] MEDS: HYDROcodone-ACET 10/325MG TAB PO PRN (14:06)
[2025-07-02] MEDS: FUROSEMIDE 40 MG/4 ML VIAL ONE (15:39)
[2025-07-02] MEDS: SODIUM BICARB 8.4% 50Meq/50ml SYR Vial IV ONE (15:39)
[2025-07-02] MEDS: SODIUM CHLORIDE 0.9% 1,000 ML IV ONE (15:40)
[2025-07-02] MEDS: FUROSEMIDE 40 MG/4 ML VIAL IV ONE (15:40)
[2025-07-02] MEDS: SODIUM ZIRCONIUM CYCL 10 GM PAK PO SCH (15:40)
[2025-07-03 01:00] VITALS: BP 148/98; PULSE 81; RESP 18; TEMP 98.7; O2SAT 98
[2025-07-03] MEDS: APIXABAN 5 MG TAB PO SCH (01:15)
[2025-07-03 05:00] VITALS: BP 118/84; PULSE 82; RESP 18; TEMP 97.3; O2SAT 100
[2025-07-03 06:26] LABS: Anion Gap 5 (5-15); Chloride 103 mmol/L (98-107); Potassium 4.6 mmol/L (3.5-5.1); Sodium 140 mmol/L (136-145)
[2025-07-03 06:28] LABS: Calcium 9.2 mg/dL (8.7-10.4)
[2025-07-03 06:32] LABS: BUN/Creatinine Ratio 18.7 (10.0-20.0); Glucose 90 mg/dL (74-106)
[2025-07-03 06:33] LABS: Blood Urea Nitrogen 25 mg/dL (9-23); Carbon Dioxide 32 mmol/L (20-31)
[2025-07-03 08:00] VITALS: PULSE 80; O2SAT 100
[2025-07-03 08:45] VITALS: BP 138/82; PULSE 98; RESP 18; TEMP 98.7; O2SAT 96
--- NOTE | 2025-07-03 10:46 | DVHPN2 ---
Reviewed: H&P Eyes: No Pain, No Vision change, No Conjunctivae inflammation, No Eyelid inflammation, No Other, No Redness ENT: No Ear pain, No Ear discharge, No Nose pain, No Nose discharge, No Nose congestion, No Mouth pain, No Mouth swelling, No Throat pain, No Throat swelling, No Other Cardiovascular: No Chest Pain, No Palpitations, No Orthopnea, No Paroxysmal Noc. Dyspnea; Edema; No Lt Headedness, No Other Respiratory: No Cough, No Dry; Shortness of breath, SOB with excertion; No Wheezing, No Hemoptysis, No Pleuritic Pain, No Sputum, No Other Gastrointestinal: No Nausea, No Vomiting, No Abdominal Pain, No Diarrhea, No Constipation, No Melena, No Hematochezia, No Other Genitourinary: No Dysuria, No Frequency, No Incontinence, No Hematuria, No Retention, No Other Musculoskeletal: No other, No neck pain, No shoulder pain, No arm pain, No back pain, No hand pain; leg pain; No foot pain Skin: No Rash, No Lesions, No Jaundice, No Bruising, No Other Objective Vitals Vital Signs Date Time Temp Pulse Resp B/P (MAP) Pulse Ox O2 Delivery O2 Flow Rate FiO2 07/03/25 08:45 98.7 98 18 138/82 (100) 96 98.7 07/03/25 08:00 Room Air* 0 21 Intake/Output Intake and Output 07/03/25 07:00 Intake Total 1600 ml Balance 1600 ml Intake Oral 1600 ml # Voids 6 # Bowel Movements 3 General Appearance: Alert, Oriented X3 HEENT: Atraumatic Cardiovascular: Regular rate, Normal S1, Normal S2 Abdomen: Normal bowel sounds Medications Current Medications Medications Dose Ordered Sig/Yariel Route Start Time Stop Time Status Last Admin Dose Admin Ondansetron HCl 4 mg Q4HP PRN IV 06/28/25 14:15 Docusate Sodium 100 mg BIDPRN PRN PO 06/28/25 14:15 Nitroglycerin 0.4 mg Q5MINP PRN SL 06/28/25 14:15 Folic Acid 1 mg DAILY PO 07/01/25 10:00 07/03/25 09:13 1 MG Multivitamins 1 tab DAILY PO 07/01/25 10:00 07/03/25 09:14 1 TAB Magnesium Oxide 400 mg DAILY PO 07/01/25 10:00 07/03/25 09:14 400 MG Thiamine HCl 100 mg DAILY PO 07/01/25 10:00 07/03/25 09:13 100 MG Zirconium Oxide 10 gm BID PO 07/02/25 10:15 07/04/25 10:14 07/03/25 01:15 10 GM Apixaban 10 mg BID PO 07/02/25 22:00 07/09/25 21:59 07/03/25 09:14 10 MG Apixaban 5 mg BID PO 07/10/25 10:00 Acetaminophen/ Hydrocodone Bitart 1 tab Q6HP PRN PO 07/02/25 13:45 07/03/25 06:35 1 TAB Laboratory Results Laboratory Tests 07/02/25 04:39 07/03/25 05:00 Chemistry Test 07/03/25 05:00 Calcium Level 9.2 mg/dL (8.7-10.4) Urinalysis Test 06/28/25 11:30 Urine Color Yellow (Yellow) Urine Clarity Turbid (Clear) H Urine pH 5.0 (5.0-9.0) Urine Specific [place] 1.011 (1.001-1.035) Urine Protein Trace (Negative) H Urine Ketones Negative (Negative) Urine Blood Negative /uL (Negative) Urine Nitrite Negative (Negative) Urine Bilirubin Negative (Negative) Urine Urobilinogen Normal mg/dL (Negative) Urine Leukocyte Esterase Negative /uL (Negative) Urine RBC None seen /hpf (0 - 3) Urine Microscopic WBC 3 /HPF (0-3) Urine Squamous Epithelial Cells Few /hpf (<5) Urine Bacteria Few /hpf (None Seen) H Urine Glucose Normal mg/dL (Normal) Microbiology Microbiology Date/Time Source Procedure Growth Status 06/28/25 12:00 Blood Blood Culture - Preliminary NO GROWTH AFTER 72 HOURS OF INCUBATION. Resulted LAYLA NEAL MD Jul 03, 2025 10:46
[2025-07-03] MEDS ORDERED: APIX5TAB4 PO ×2 (10:51→18:37)
[2025-07-03] MEDS ORDERED: HYDR-4798 PO (10:51)
--- NOTE | 2025-07-03 10:53 | DVHDS2 ---
Discharge Summary Date of Admission Jun 28, 2025 at 14:20 Date of Discharge: Jul 03, 2025 Admitting Diagnosis Acute extensive left lower extremity DVT (femoral to tibial vein) Acute pulmonary embolism Acute kidney injury secondary to VMN Acute hypoxic respiratory failure secondary to pulmonary embolism Hypertension uncontrolled with episode of hypotension Labs/Diagnostic Data: Laboratory Results Test 07/03/25 05:00 07/02/25 10:36 07/02/25 04:39 07/01/25 05:54 Sodium Level 140 mmol/L (136-145) Potassium Level 4.6 mmol/L (3.5-5.1) Chloride Level 103 mmol/L (98-107) Carbon Dioxide Level 32 mmol/L (20-31) Anion Gap 5 (5-15) Blood Urea Nitrogen 25 mg/dL (9-23) Creatinine 1.34 mg/dL (0.700-1.30) Glomerular Filtration Rate Calc 61 mL/min (>90) BUN/Creatinine Ratio 18.7 (10.0-20.0) Serum Glucose 90 mg/dL (74-106) Calcium Level 9.2 mg/dL (8.7-10.4) Prothrombin Time 10.3 sec (9.3-11.8) Prothrombin Time INR 0.97 (0.9-1.15) Activated Partial Thromboplast Time 34.9 SEC (24.5-34.5) White Blood Count 8.1 10^3/uL (4.4-10.8) Red Blood Count 3.53 10^6/uL (4.5-5.90) Hemoglobin 12.1 g/dL (13.5-17.5) Hematocrit 35.9 % (41.0-53.0) Mean Corpuscular Volume 101.7 fL (80.0-100.0) Mean Corpuscular Hemoglobin 34.3 pg (28.0-32.0) Mean Corpuscular Hemoglobin Concent 33.7 g/dL (32.0-36.0) Red Cell Distribution Width 13.6 % (11.8-14.3) Platelet Count 250 10^3/uL (140-450) Mean Platelet Volume 8.6 fL (6.9-10.8) Neutrophils (%) (Auto) 56.5 % (37.0-80.0) Lymphocytes (%) (Auto) 25.1 % (10.0-50.0) Monocytes (%) (Auto) 12.6 % (0.0-12.0) Eosinophils (%) (Auto) 5.0 % (0.0-7.0) Basophils (%) (Auto) 0.8 % (0.0-2.0) Neutrophils # (Auto) 4.6 10 ^3/uL (1.6-8.6) Lymphocytes # (Auto) 2.0 10 ^3/uL (0.4-5.4) Monocytes # (Auto) 1.0 10 ^3/uL (0-1.3) Eosinophils # (Auto) 0.4 10 ^3/uL (0-0.8) Basophils # (Auto) 0.1 10 ^3/uL (0-0.2) Nucleated Red Blood Cells 0.0 % Random Vancomycin Level 10.7 ug/mL (5-10) Test 06/29/25 02:04 06/28/25 22:18 06/28/25 15:29 06/28/25 13:39 Total Bilirubin 0.8 mg/dL (0.2-1.0) Aspartate Amino Transferase (AST) 33 U/L (13-40) Alanine Aminotransferase (ALT) 34 U/L (7-40) Alkaline Phosphatase 97 U/L (46-116) B-Type Natriuretic Peptide 28.18 pg/mL (0-100) Total Protein 6.1 g/dL (5.7-8.2) Albumin 3.5 g/dL (3.2-4.8) Lactic Acid Level 3.1 mmol/L (0.4-2.0) Phosphorus Level 6.4 mg/dL (2.4-5.1) Magnesium Level 1.7 mg/dL (1.6-2.6) Troponin I High Sensitivity 27 ng/L (</=54) Thyroid Stimulating Hormone (TSH) 1.23 uIU/mL (0.55-4.78) Plasma/Serum Blood Alcohol < 3.0 mg/dL (<10) POC Glucose 118 mg/dl (70-106) Test 06/28/25 11:57 06/28/25 11:30 D-Dimer, Quantitative 10.14 mg/L FEU (0.0-0.49) Urine Color Yellow (Yellow) Urine Clarity Turbid (Clear) Urine pH 5.0 (5.0-9.0) Urine Specific Alfred 1.011 (1.001-1.035) Urine Protein Trace (Negative) Urine Ketones Negative (Negative) Urine Blood Negative /uL (Negative) Urine Nitrite Negative (Negative) Urine Bilirubin Negative (Negative) Urine Urobilinogen Normal mg/dL (Negative) Urine Leukocyte Esterase Negative /uL (Negative) Urine RBC None seen /hpf (0 - 3) Urine Microscopic WBC 3 /HPF (0-3) Urine Squamous Epithelial Cells Few /hpf (<5) Urine Bacteria Few /hpf (None Seen) Urine Glucose Normal mg/dL (Normal) Other Laboratory Tests 07/03/25 05:00 07/02/25 04:39 Brief Hx & Hospital Course: 59-year-old male with past medical history of hypertension and surgical history significant for cervical spine fusion in 1995 presents with left leg pain and swelling for three weeks and progressive shortness of breath. Patient reports that approximately three weeks ago he developed left leg pain followed by significant swelling. About 1.5 weeks later, he began experiencing shortness of breath. He was evaluated at an outside clinic for a physical exam and was advised to come to the ED about one week ago but did not present until today due to worsening symptoms. He reports worsening dyspnea but denies chest pain. He states he has been taking hydrochlorothiazide and lisinopril for the past four months, with hydrochlorothiazide recently added due to persistently elevated blood pressures in the 186823 systolic range. He denies any prior history of kidney disease and states he has been taking his medications as prescribed. He notes decreased oral intake since Tuesday. CT angiography was deferred, and a V/Q scan was ordered to evaluate for pulmonary embolism. Chest X-ray was unremarkable. D-dimer elevated at 10.14. Troponin was negative. Lactate 2.6. AST 51, ALT 51, alkaline phosphatase 122. Last known creatinine was 1.04 on October 04, 2024. In the ED, patient received calcium gluconate, Lasix, albuterol, and was started on anticoagulation. Renal service was consulted for acute kidney injury and hyperkalemia. Given extensive DVT, worsening dyspnea, renal failure, and concern for PE, patient will be admitted to [facility] for further workup and management. The patient's echo was done showed EF of 65% with normal valve function. The patient is subsequently was put on heparin drip and switch to Eliquis. The patient's pain control was done with [place]. The patient's kidney function is improved. He back to baseline after fluid resuscitation. So today I am going to discharge the patient home. Advised the patient to follow up with primary care physician 1-2 weeks. Activity as tolerated. Diet per home diet. Eliquis starter pack was given to the patient. Physical exam: HEENT: Normocephalic atraumatic pupils equal react to light and accommodation. Extraocular muscles intact, conjunctiva pink, oropharynx moist, no thrush, no exudate. Lymphatic: No lymphadenopathy Cardiovascular exam: S1, S2 was heard. No murmurs, rubs, gallops Lung: Clear on auscultation bilaterally, no wheeze, rale, rhonchi. GI: Abdominal soft, nondistended, nontenderness, positive bowel sounds. Extremity: No crepitus, cyanosis, edema. Pedal pulses present bilateral. Full range of motion. Skin: Normal turgor, no rash. Psych: Alert, oriented x3. Neurology: No focal deficits, cranial nerve II to XII grossly intact. This medical document was created using an electronic medical record system with [employer] direct computerized dictation system. Although this document has been carefully reviewed, there may still be some phonetic and typographical errors. These areas are purely typographical due to imperfections of the software programs, and do not reflect any compromise in the patient's medical care. Condition at Discharge: Stable Final Diagnosis/Problems List Acute extensive left lower extremity DVT (femoral to tibial vein) Acute pulmonary embolism Acute kidney injury secondary to VMN Acute hypoxic respiratory failure secondary to pulmonary embolism Hypertension uncontrolled with episode of hypotension Discharge Disposition: Home Discharge Instruct/Medications Diet: Regular Activity: No Restrictions, As Tolerated Follow Up/Referral: pvp 1-2 weeks Medications: see med list Scheduled Apixaban Base (Eliquis Starter Pack), 5 MG PO BID Hydrochlorothiazide (Hydrochlorothiazide), 12.5 MG PO DAILY, (Reported) Lisinopril (Lisinopril), 20 MG PO DAILY, (Reported) Scheduled PRN Hydrocodone-Acetaminophen (Hydrocodone Bitartrate/AC 10-325 mg), 1 TAB PO Q6HP PRN Discharge Statement: "Patient was advised to return to the ER or call 911 if any headaches, dizziness, shortness of breath, chest pain, abdominal pain, bleeding, fevers, or worsening of medical condition. Patient was counseled about treatment plan, medications, possible side effects, patientverbalized understanding. All questions were answered to the best of my ability. This discharge took greater then 30 minutes in planning, reviewing documentation, counseling the patient, and discussing with other team members." ASSESSMENT ASSESSMENT Assessment DVT and PE Date of Service: Jul 03, 2025 Billing Provider: LAYLA NEAL MD Common Visit Codes: 34730-DBP/OBS DISCH DAY >30min LAYLA NEAL MD Jul 03, 2025 10:53
[2025-07-03 12:13] VITALS: BP 138/82; PULSE 98; RESP 18; TEMP 98.7; O2SAT 96
[2025-07-03 12:37] VITALS: BP 115/75; PULSE 88; RESP 20; TEMP 97.5; O2SAT 99
--- NOTE | 2025-07-03 13:34 | DVHPN2 ---
Progress Note Date Seen: Jul 03, 2025 Medical Necessity Reason Pt with a Central, PICC or Fol: No Objective vital signs Vital Sign Date Time Temp Pulse Resp B/P (MAP) Pulse Ox O2 Delivery O2 Flow Rate FiO2 07/03/25 12:37 97.5 88 20 115/75 (88) 99 97.5 07/03/25 08:00 Room Air* 0 21 Total Intake and Output 07/02/25 07/02/25 07/03/25 15:00 23:00 07:00 Intake Total 860 ml 740 ml Balance 860 ml 740 ml medications Current Medications Medications Dose Ordered Sig/Yariel Route Start Time Stop Time Status Last Admin Dose Admin Ondansetron HCl 4 mg Q4HP PRN IV 06/28/25 14:15 Docusate Sodium 100 mg BIDPRN PRN PO 06/28/25 14:15 Nitroglycerin 0.4 mg Q5MINP PRN SL 06/28/25 14:15 Folic Acid 1 mg DAILY PO 07/01/25 10:00 07/03/25 09:13 1 MG Multivitamins 1 tab DAILY PO 07/01/25 10:00 07/03/25 09:14 1 TAB Magnesium Oxide 400 mg DAILY PO 07/01/25 10:00 07/03/25 09:14 400 MG Thiamine HCl 100 mg DAILY PO 07/01/25 10:00 07/03/25 09:13 100 MG Zirconium Oxide 10 gm BID PO 07/02/25 10:15 07/04/25 10:14 07/03/25 01:15 10 GM Apixaban 10 mg BID PO 07/02/25 22:00 07/09/25 21:59 07/03/25 09:14 10 MG Apixaban 5 mg BID PO 07/10/25 10:00 Acetaminophen/ Hydrocodone Bitart 1 tab Q6HP PRN PO 07/02/25 13:45 07/03/25 06:35 1 TAB Examination: GENERAL:Normal, CVS:Abnormal, SKIN:Normal laboratory and microbiology Laboratory Tests 07/03/25 05:00 07/02/25 04:39 Test 07/03/25 05:00 Range/Units Serum Glucose 90 74-106 mg/dL Microbiology Date/Time Source Procedure Growth Status 06/28/25 12:00 Blood Blood Culture - Final NO GROWTH AFTER 5 DAYS OF INCUBATION. Complete Problem List/Assessment/Plan Problem List/Assessment/Plan Acute kidney injury acute DVT and acute PE lactic acidosis hypotension etoh abuse on withdrawal protocol hyperkalemia [place] resolving monitor UOP completed IVF post contrast PE noted on CTA scan already on AV daily lokelma potassium restricted diet etoh CIWA ordered by primary AC per primary team echo noted US Abd shows no renal findings Plan discussed with: Patient SHIRA MIKE MD Jul 03, 2025 13:34
[2025-07-10] MEDS ORDERED: APIXABAN 5 MG TAB PO SCH (10:00)
== END 2025-07-03 14:30 | disposition home or self-care (01) | DRG 299 ==
LOC: ER 10:37 → OVERFLOW 14:20 → TELE-WESTW 06-29 14:28
PROVIDERS: ADMIT Internal Medicine; ATTEND Internal Medicine
DX: I82.412 Acute embolism and thrombosis of left femoral vein (principal); I26.99 Other pulmonary embolism without acute cor pulmonale; J96.01 Acute respiratory failure with hypoxia; N17.0 Acute kidney failure with tubular necrosis; I82.432 Acute embolism and thrombosis of left popliteal vein; F10.10 Alcohol abuse, uncomplicated; I12.9 Hypertensive chronic kidney disease with stage 1 through stage 4 chronic kidney disease, or unspecified chronic kidney disease; E87.20 Acidosis, unspecified; I82.442 Acute embolism and thrombosis of left tibial vein; I82.452 Acute embolism and thrombosis of left peroneal vein; E87.5 Hyperkalemia; N18.2 Chronic kidney disease, stage 2 (mild); I95.9 Hypotension, unspecified; R74.01 Elevation of levels of liver transaminase levels; Z79.899 Other long term (current) drug therapy; G89.29 Other chronic pain; Z98.1 Arthrodesis status; Y90.9 Presence of alcohol in blood, level not specified
CPT/HCPCS: 36415; 71045; 71275; 76700; 78582; 80048; 80053; 80202; 80320; 81001; 82565; 82962; 83605; 83735; 83880; 84100; 84132; 84443; 84484; 85025; 85379; 85610; 85730; 87040; 93306; 93971; 99291; G0378; J1815; J1885; J2405